=== PATIENT | male | born 1945 | race Caucasian/White ===

== ENCOUNTER 2017-01-07 11:18 | Emergency (ER) | payer MEDICARE, OTHER ==
[~2017-01-07] VITALS: Ht 175.3 cm; Wt 80.3 kg
[2017-01-07 11:32] VITALS: BP 159/94
--- NOTE | 2017-01-07 12:35 | PHYS DOC ---
Past Medical History Past Medical History: Diabetes-Type II, Hypertension Past Surgical History: No Surgical History Smokin Pack Per Day Alcohol Use: None Drug Use: None Adult General Chief Complaint Chief Complaint: EYE PROBLEMS HPI HPI Patient is a 71 year old male who presents with left eye redness and swelling for 2 days. He has swelling of the upper and lower eyelids with red rash extending across the left side of his face. He reports pain in the left eye with movement of the eyes. He has purulent drainage from the eyes well. He denies any fevers. His PCP is Dr. Hart. His assembler plastic boat is Dr. Robledo. Review of Systems Review of Systems Constitutional: Denies fever or chills. [] Eyes: Denies change in visual acuity. Reports left eye redness, drainage, upper and lower eyelid swelling, and pain with eye movement. HENT: Denies ear pain, nasal congestion or sore throat. [] Integument: Reports left facial rash. Neurologic: Denies headache, focal weakness or sensory changes. [] All systems reviewed and negative unless otherwise stated in the HPI. Current Medications Current Medications Current Medications Medications (Trade) Dose Ordered Sig/Remy Start Time Stop Time Status Last Admin Dose Admin Info (Do NOT chart on this entry -- for MONITORING) 1 each PRN DAILY PRN 01/07/17 13:45 01/07/17 14:32 DC Iohexol (Omnipaque 300 Mg/ml) 70 ml 1X ONCE 01/07/17 13:45 01/07/17 13:46 DC Allergies Allergies Allergies Coded Allergies Type Severity Reaction Last Updated Verified No Known Drug Allergies 05/04/14 No Physical Exam Physical Exam Constitutional: Well developed, well nourished, no acute distress, non-toxic appearance. [] HENT: Normocephalic, atraumatic, bilateral external ears normal, oropharynx moist, no oral exudates, nose normal. [] Eyes: PERRLA, EOMI. diffuse left eye conjunctival injection with copious purulent drainage. There is erythema and edema of the upper and lower eyelids of the left eye. Visual acuity: OS 20/100, OD 20/100, OU 20/100 (corrected) Neck: Normal range of motion, no tenderness, supple, no stridor. [] Skin: Warm, dry. There is a mildly raised erythematous rash on the left side of the face without vesicles. Neurologic: Alert and oriented X 3, normal motor function, normal sensory function, no focal deficits noted. [] Psychologic: Affect normal, judgement normal, mood normal. [] Current Patient Data Vital Signs Vital Signs Date Time Temp Pulse Resp B/P Pulse Ox O2 Delivery O2 Flow Rate FiO2 01/07/17 11:32 97.8 115 18 97 Room Air 97.8 Lab Values Laboratory Tests Test 01/07/17 12:19 01/07/17 12:23 White Blood Count 9.7x10^3/uL (4.0-11.0) Red Blood Count 4.71x10^6/uL (4.30-5.70) Hemoglobin 12.6g/dL (13.0-17.5) L Hematocrit 38.3% (39.0-53.0) L Mean Corpuscular Volume 81fL (79-100) Mean Corpuscular Hemoglobin 27pg (25-35) Mean Corpuscular Hemoglobin Concent 33g/dL (31-37) Red Cell Distribution Width 16.2% (11.5-14.5) H Platelet Count 336x10^3/uL (140-400) Neutrophils (%) (Auto) 66% (31-73) Lymphocytes (%) (Auto) 13% (24-48) L Monocytes (%) (Auto) 9% (0-9) Eosinophils (%) (Auto) 11% (0-3) H Basophils (%) (Auto) 1% (0-3) Neutrophils # (Auto) 6.4x10^3uL (1.8-7.7) Lymphocytes # (Auto) 1.3x10^3/uL (1.0-4.8) Monocytes # (Auto) 0.9x10^3/uL (0.0-1.1) Eosinophils # (Auto) 1.1x10^3/uL (0.0-0.7) H Basophils # (Auto) 0.1x10^3/uL (0.0-0.2) POC Hemoglobin 13.6g/dL (14-18) L POC Hematocrit 40% (37-52) POC Sodium 131mmol/L (135-145) L POC Potassium 4.4mmol/L (3.5-5.0) POC Chloride 94mmol/L (98-110) L POC Total CO2 24mmol/L (23-32) Anion Gap 18mmol/L (6-14) H POC Blood Urea Nitrogen 9mg/dL (8-26) POC Creatinine 0.9mg/dL (0.5-1.4) Glucose Level 102mg/dL (70-99) H POC Ionized Calcium (July) 1.14mmol/L (1.13-1.32) Laboratory Tests 01/07/17 12:19 Laboratory Tests 01/07/17 12:23 EKG EKG [] Radiology/Procedures Radiology/Procedures REASON: left eye redness, swelling, pain w/movement, concern for orbital cellulitis PROCEDURE: ORBITS W/CONTRAST EXAM: CT orbits with contrast. HISTORY: Left a redness, swelling and pain. TECHNIQUE: CT of the orbits was performed after the intravenous administration of 70 mL Omnipaque 300. COMPARISON: None. FINDINGS: There is soft tissue swelling along the left greater than right eyelid, extending to a lesser degree to the upper cheeks. No drainable collection is appreciated. The post septal soft tissues are not involved bilaterally. There are changes of bilateral cataract surgery, but otherwise the globes appear normal. There is moderate mucosal thickening in the ethmoid air cells. No erosion of the lamina papyracea is appreciated bilaterally. There is mild mucosal thickening in both maxillary sinuses, the left aspect of the sphenoid sinus, and inferiorly in the frontal sinus. There are no air-fluid levels. The ostiomeatal units are patent bilaterally. IMPRESSION: 1. Preseptal soft tissue swelling along the left greater then right eyelids and cheeks is consistent with cellulitis. No drainable collection is seen. No post septal involvement is identified. 2. Moderate chronic appearing sinus disease. Course & Med Decision Making Course & Med Decision Making Pertinent Labs and Imaging studies reviewed. (See chart for details) Patient presents with 2 days of left eye redness with swelling of the eyelids and surrounding facial rash. Reports pain with movement of the eye. Laboratory evaluation does not reveal leukocytosis. CT of the orbits with contrast shows a preseptal cellulitis without orbital cellulitis. He is discharged with prescription for clindamycin. He declines offer for prescription for pain medication. He is instructed to follow-up with Dr. Robledo, his assembler plastic boat in the next 2-3 days. He is instructed to return to the emergency department if his pain or swelling are worsening or if he has any other new or concerning symptoms. He verbalizes understanding and agrees with plan. Miguel Disclaimer Miguel Disclaimer This electronic medical record was generated, in whole or in part, using a voice recognition dictation system. Departure Departure Impression: Primary Impression: Periorbital cellulitis of left eye Disposition: HOME, SELF-CARE Condition: STABLE Referrals: SHAY HART MD (PCP) Marya ROBLEDO MD Patient Instructions: Periorbital Cellulitis Additional Instructions: Your CT scan shows an infection around the eye but not within the orbit of the eye. Please complete all the prescribed antibiotics, even if your eye is improving. Please follow-up with your assembler plastic boat as soon as possible. Return to the emergency department if you have worsening of your symptoms or other new or concerning symptoms. Scripts Clindamycin Hcl 150 Mg Capsule3 Cap PO TID 10 Days Prov:JAYNE CHAVES 01/07/17 JAYNE CHAVES Jan 07, 2017 12:35
[2017-01-07 12:37] LABS: POTASSIUM ISTAT 4.4 mmol/L (3.5-5.0)
[2017-01-07 12:43] LABS: BASO # 0.1 x10^3/uL (0.0-0.2); BASO % 1 % (0-3); EOS % 11 % (0-3); HEMATOCRIT 38.3 % (39.0-53.0); HEMOGLOBIN 12.6 g/dL (13.0-17.5); LYMPH # 1.3 x10^3/uL (1.0-4.8); LYMPH % 13 % (24-48); MEAN CORPUSCULAR HEMOGLOBIN 27 pg (25-35); MEAN CORPUSCULAR HGB CONC 33 g/dL (31-37); MEAN CORPUSCULAR VOLUME 81 fL (79-100); MONO % 9 % (0-9); NEUT % 66 % (31-73); PLATELET COUNT 336 x10^3/uL (140-400); RED BLOOD COUNT 4.71 x10^6/uL (4.30-5.70); RED CELL DISTRIBUTION WIDTH 16.2 % (11.5-14.5); WHITE BLOOD COUNT 9.7 x10^3/uL (4.0-11.0)
[2017-01-07] MEDS ORDERED: CONTRAST GIVEN MC PRN (13:45)
[2017-01-07] MEDS ORDERED: IOHEXOL 300 MG/ML 75 ML VIAL IV ONE (13:45)
--- NOTE | 2017-01-07 14:00 | RAD ---
EXAM: CT orbits with contrast. HISTORY: Left a redness, swelling and pain. TECHNIQUE: CT of the orbits was performed after the intravenous administration of 70 mL Omnipaque 300. COMPARISON: None. FINDINGS: There is soft tissue swelling along the left greater than right eyelid, extending to a lesser degree to the upper cheeks. No drainable collection is appreciated. The post septal soft tissues are not involved bilaterally. There are changes of bilateral cataract surgery, but otherwise the globes appear normal. There is moderate mucosal thickening in the ethmoid air cells. No erosion of the lamina papyracea is appreciated bilaterally. There is mild mucosal thickening in both maxillary sinuses, the left aspect of the sphenoid sinus, and inferiorly in the frontal sinus. There are no air-fluid levels. The ostiomeatal units are patent bilaterally. IMPRESSION: 1. Preseptal soft tissue swelling along the left greater then right eyelids and cheeks is consistent with cellulitis. No drainable collection is seen. No post septal involvement is identified. 2. Moderate chronic appearing sinus disease. One or more of the following individualized dose reduction techniques were utilized for this examination: 1. Automated exposure control. 2. Adjustment of the mA and/or kV according to patient size. 3. Use of iterative reconstruction technique.
[2017-01-07] MEDS ORDERED: CLIN-44 PO (14:23)
[2017-01-12] MEDS ORDERED: GABA-585 PO (09:49)
[2017-01-12] MEDS ORDERED: HYDR-971 PO (09:49)
[2017-01-12] MEDS ORDERED: ACYC800T PO (09:49)
[2017-01-12] MEDS ORDERED: AMLO5TAB2 PO (09:49)
== END 2017-01-07 14:31 | disposition home or self-care (01) ==
LOC: ER 11:18
DX: L03.213 Periorbital cellulitis (principal); E11.9 Type 2 diabetes mellitus without complications; I10 Essential (primary) hypertension; F17.210 Nicotine dependence, cigarettes, uncomplicated
CPT/HCPCS: 36415; 70481; 80047; 85027; Q9967; 99285-25

== ENCOUNTER 2017-01-09 11:45 | Inpatient (IN) | payer MEDICARE, OTHER ==
[~2017-01-09] VITALS: Ht 175.3 cm; Wt 79.8 kg
[~2017-01-09 11:45] MED LIST: CLIN-44 PO
[2017-01-09] MEDS ORDERED: EYE-STREAM OPHTH SOLUTION 120 ML BOTTLE. ONE (12:05)
[2017-01-09] MEDS ORDERED: FLUORESCEIN OPHTH TEST STRIP. ONE (12:05)
[2017-01-09] MEDS ORDERED: TETRACAINE 0.5% OPHTH SOLUTION 4ML BOTTLE. ONE (12:05)
[2017-01-09] MEDS ORDERED: FLUORESCEIN OPHTH TEST STRIP. OS ONE (12:15)
[2017-01-09] MEDS ORDERED: EYE-STREAM OPHTH SOLUTION 120 ML BOTTLE. OU ONE (12:15)
[2017-01-09] MEDS ORDERED: TETRACAINE 0.5% OPHTH SOLUTION 4ML BOTTLE. OS ONE (12:15)
[2017-01-09] MEDS ORDERED: ONDANSETRON PF 4 MG/2 ML VIAL. IV PRN (12:30)
[2017-01-09] MEDS ORDERED: ACETAMINOPHEN 325 MG TABLET. PO PRN (12:30)
[2017-01-09 12:32] LABS: BASO % 1 % (0-3); EOS % 7 % (0-3); HEMATOCRIT 35.9 % (39.0-53.0); HEMOGLOBIN 11.7 g/dL (13.0-17.5); LYMPH # 1.3 x10^3/uL (1.0-4.8); LYMPH % 18 % (24-48); MEAN CORPUSCULAR HEMOGLOBIN 27 pg (25-35); MEAN CORPUSCULAR HGB CONC 33 g/dL (31-37); MEAN CORPUSCULAR VOLUME 82 fL (79-100); MONO % 13 % (0-9); NEUT % 62 % (31-73); PLATELET COUNT 257 x10^3/uL (140-400); RED BLOOD COUNT 4.38 x10^6/uL (4.30-5.70)
--- NOTE | 2017-01-09 12:34 | PHYS DOC ---
Past Medical History Past Medical History: Diabetes-Type II, GERD, High Cholesterol, Hypertension Past Surgical History: No Surgical History Alcohol Use: None Drug Use: None Adult General Chief Complaint Chief Complaint: EYE PROBLEMS HPI HPI This 71-year-old female who has history of diabetes type 2, hypertension, acid reflux who presents to days after presenting days prior for a left periorbital cellulitis as demonstrated on the CT. Patient was taking clindamycin but now has significant worsening of his swelling and redness to his left face. He denies any pain with extraocular motion. He denies any headache. Patient is fully alert and oriented and able to answer all my questions. He has been able to eat and drink without difficulty and denies any nausea or vomiting. He denies any other systemic signs. Review of Systems Review of Systems Constitutional: Denies fever or chills [] Eyes: Denies change in visual acuity, redness, or eye pain [] HENT: Denies nasal congestion or sore throat [] Respiratory: Denies cough or shortness of breath [] Cardiovascular: No additional information not addressed in HPI [] GI: Denies abdominal pain, nausea, vomiting, bloody stools or diarrhea [] : Denies dysuria or hematuria [] Musculoskeletal: Denies back pain or joint pain [] Integument: Denies rash, has skin lesions [] Neurologic: Denies headache, focal weakness or sensory changes [] Endocrine: Denies polyuria or polydipsia [] Current Medications Current Medications Current Medications Medications (Trade) Dose Ordered Sig/Remy Start Time Stop Time Status Last Admin Dose Admin Acetaminophen (Tylenol) 650 mg PRN Q4HRS PRN 01/09/17 12:30 01/10/17 12:29 Eye Irrigation Solution (Eye-Stream) 120 ml 1X ONCE 01/09/17 12:15 01/09/17 12:16 DC 01/09/17 12:09 120 ML Fluorescein Sodium (Ful-Mei) 1 strip 1X ONCE 01/09/17 12:15 01/09/17 12:16 DC 01/09/17 12:08 1 STRIP Ondansetron HCl (Zofran) 4 mg PRN Q8HRS PRN 01/09/17 12:30 01/10/17 12:29 Tetracaine HCl (Tetracaine) 1 drop 1X ONCE 01/09/17 12:15 01/09/17 12:16 DC 01/09/17 12:09 1 DROP Allergies Allergies Allergies Coded Allergies Type Severity Reaction Last Updated Verified No Known Drug Allergies 05/04/14 No Physical Exam Physical Exam Constitutional: Well developed, well nourished, no acute distress, non-toxic appearance. [] HENT: Normocephalic, atraumatic, bilateral external ears normal, oropharynx moist, no oral exudates, nose normal. [] Eyes: PERRLA, EOMI, large amount of soft tissue swelling to the left periobital area and significant erythema and skin lesions extending upward on the forehead on the left and it does not cross the midline, this is consistent with herpes zoster of the face, no discharge. [] Neck: Normal range of motion, no tenderness, supple, no stridor. [] Cardiovascular:Heart rate regular rhythm, no murmur [] Lungs & Thorax: Bilateral breath sounds clear to auscultation [] Abdomen: Bowel sounds normal, soft, no tenderness, no masses, no pulsatile masses. [] Skin: Warm, dry, no erythema, no rash. [] Back: No tenderness, no CVA tenderness. [] Extremities: No tenderness, no cyanosis, no clubbing, ROM intact, no edema. [] Neurologic: Alert and oriented X 3, normal motor function, normal sensory function, no focal deficits noted. [] Psychologic: Affect normal, judgement normal, mood normal. [] Current Patient Data Vital Signs Vital Signs Date Time Temp Pulse Resp B/P Pulse Ox O2 Delivery O2 Flow Rate FiO2 01/09/17 11:54 97.6 99 18 141/79 98 Room Air 97.6 Lab Values Laboratory Tests Test 01/09/17 12:18 White Blood Count 7.0x10^3/uL (4.0-11.0) Red Blood Count 4.38x10^6/uL (4.30-5.70) Hemoglobin 11.7g/dL (13.0-17.5) L Hematocrit 35.9% (39.0-53.0) L Mean Corpuscular Volume 82fL (79-100) Mean Corpuscular Hemoglobin 27pg (25-35) Mean Corpuscular Hemoglobin Concent 33g/dL (31-37) Red Cell Distribution Width 16.0% (11.5-14.5) H Platelet Count 257x10^3/uL (140-400) Neutrophils (%) (Auto) 62% (31-73) Lymphocytes (%) (Auto) 18% (24-48) L Monocytes (%) (Auto) 13% (0-9) H Eosinophils (%) (Auto) 7% (0-3) H Basophils (%) (Auto) 1% (0-3) Neutrophils # (Auto) 4.3x10^3uL (1.8-7.7) Lymphocytes # (Auto) 1.3x10^3/uL (1.0-4.8) Monocytes # (Auto) 0.9x10^3/uL (0.0-1.1) Eosinophils # (Auto) 0.5x10^3/uL (0.0-0.7) Basophils # (Auto) 0.0x10^3/uL (0.0-0.2) Sodium Level 130mmol/L (136-145) L Potassium Level 4.3mmol/L (3.5-5.1) Chloride Level 93mmol/L (98-107) L Carbon Dioxide Level 25mmol/L (21-32) Anion Gap 12 (6-14) Blood Urea Nitrogen 11mg/dL (8-26) Creatinine 0.9mg/dL (0.7-1.3) Estimated GFR (Cockcroft-Gault) 83.4 Glucose Level 110mg/dL (70-99) H Lactic Acid Level 0.8mmol/L (0.4-2.0) Calcium Level 9.2mg/dL (8.5-10.1) Laboratory Tests 01/09/17 12:18 Laboratory Tests 01/09/17 12:18 EKG EKG [] Radiology/Procedures Radiology/Procedures [] Course & Med Decision Making Course & Med Decision Making Pertinent Labs and Imaging studies reviewed. (See chart for details) 71-year-old male who now has worsening facial infection and exam findings that are fairly classic for herpes zoster and will be started on acyclovir therapy and admitted to the hospital. I will continue IV clindamycin treatment. Cultures and lactate were also obtained. I will also place a consultation to ophthalmology, Dr. Duncan, who will evaluate the patient in the hospital. I discussed these findings and the need for admission with the hospitalist, Dr. Mcdonald, who agreed to accept the patient for further evaluation and treatment. His laboratory workup was otherwise unremarkable. He was admitted without incident. His exam did not reveal any pain with extraocular motion and continues to show just demonstrate soft tissue swelling and so I do not see an indication to repeat CT imaging at this time. She does have some purulent drainage coming from the left eye and wound cultures were required from that area. Dragon Disclaimer Dragon Disclaimer This electronic medical record was generated, in whole or in part, using a voice recognition dictation system. Departure Departure Impression: Primary Impression: Periorbital cellulitis of left eye Additional Impression: Herpes zoster Disposition: ADMITTED INPATIENT Admitting Physician: Kulwant Mcdonald Condition: STABLE Referrals: SHAY HART MD (PCP) Problem Qualifiers GEMINI CORNEJO DO Jan 09, 2017 12:34
[2017-01-09] MEDS ORDERED: CLINDAMYCIN 600MG PREMIX 50 ML IV ONE (12:45)
[2017-01-09] MEDS ORDERED: ACYCLOVIR SODIUM 1,000 MG in IV DEXTROSE 5% 250 ML IV ONE (12:45)
[2017-01-09 12:52] LABS: CALCIUM 9.2 mg/dL (8.5-10.1); CREATININE 0.9 mg/dL (0.7-1.3); GFR 83.4; POTASSIUM 4.3 mmol/L (3.5-5.1)
[2017-01-09] MEDS ORDERED: IV NORMAL SALINE 1000ML BAG 1,000 ML IV ONE (13:00)
[2017-01-09 14:00] VITALS: BP 138/76
[2017-01-09] MEDS ORDERED: ACYCLOVIR SODIUM IV SCH (14:00)
[2017-01-09] MEDS ORDERED: DEXTROSE 5% IV SCH (14:00)
[2017-01-09] MEDS ORDERED: LISI-334 PO (14:36)
[2017-01-09] MEDS ORDERED: CETI10TA16 PO (14:36)
[2017-01-09] MEDS ORDERED: AMLO5TAB2 PO (14:36)
[2017-01-09] MEDS ORDERED: ASPI81TA2 PO (14:36)
[2017-01-09] MEDS ORDERED: TAMS0.4C2 PO (14:36)
[2017-01-09] MEDS ORDERED: METF10002 PO (14:36)
[2017-01-09] MEDS ORDERED: DUTA0.5C PO (14:36)
[2017-01-09] MEDS ORDERED: CRESTOR5 MG PO (14:36)
[2017-01-09] MEDS ORDERED: OMEP40CA5 PO (14:36)
[2017-01-09] MEDS ORDERED: METO10TA PO (14:36)
[2017-01-09] MEDS ORDERED: GLIP5TAB10 PO (14:36)
[2017-01-09] MEDS ORDERED: MULT1TAB52 PO (14:38)
[2017-01-09] MEDS: IV NORMAL SALINE 1000ML BAG 1,000 ML IV SCH (15:11)
--- NOTE | 2017-01-09 16:13 | ACF ---
Admission Forms Criteria HEAD AND NECK DISEASE [facility] Clinical Indications for Admission to Inpatient Care ( Place 'X' for any and all applicable criteria): Hospital admission is needed for appropriate care of the patient because of ANY ONE of the following (1)(2): [ ]I. Severe sinusitis as indicated by ANY ONE of the following (6)(13)(21) [ ]a) Suspected [employer] infection [ ]b) Bacteremia [ ]c) Hemodynamic instability [ ]d) Outpatient and observation care antibiotic treatment have failed or are not considered appropriate [ ]e) Surgical drainage needed that cannot be performed on an outpatient basis or observation. setting [ ]f) Suspected orbital involvement [ ]II. Acute glaucoma unresponsive to emergency treatment that requires medication or other treatment beyond the scope of observation care (1) [ ]III. Severe eye infection or inflammation (eg, uveitis) which is unresponsive to emergency treatment and requires medication or other treatment beyond the scope of observation care (1)(2)(3)(4) [ ]IV. Severe epistaxis requiring posterior packing (5)(6) [ ]V. Acute bacterial labyrinthitis(6)(7) [ ]. Viral labyrinthitis with symptoms uncontrollable on an outpatient or observation care basis (6)(7) [ ]VII. Severe necrotizing external otitis unresponsive to outpatient and observation care treatment(6) [ ]VIII. Otitis media requiring treatment beyond the scope of outpatient and observation care, as indicated by presence or persistence of ANY ONE of the following(6)(8)(9): [ ]a) Hemodynamic instability [ ]b) Mastoiditis [ ]c) Suspected [employer] infection [ ]d) Bacteremia [ ]e) Surgical drainage needed that cannot be performed as an outpatient. or in an observation setting. [ ]IX. Epiglottitis or supraglottitis(6)(11)(12)(13)(14) [ ]X. Stridor or laryngospasm (unresponsive to emergency management) (6)(11)( 12)(13)(14) [ ]XI. Acute pharyngitis or tonsillitis and ANY ONE of the following (14)(15)( 16): [ ]a) Hemodynamic instability remaining after emergency or observation level care (as appropriate) [ ]b) Surgical drainage needed that cannot be performed in outpatient or observation setting [ ]c) Mediastinitis [ ]d) Thrombophlebitis of internal jugular vein (Lemierre syndrome) [ ]XII. Sialoadenitis and ANY ONE of the following (17) (18) [ ]a) Hemodynamic instability remaining after emergency or observation level care(as appropriate) [ ]b) Surgical drainage needed that cannot be performed in outpatient or observation setting [ ]XIII. Airway blockage or inability to swallow (6)(12)(19)(20) [X]XIV.Complicated infection indicated by ANY ONE of the following(6)(13)(21)(22 ): [ ]a) Abscess or swelling causing airway difficulty(12) [ ]b) Bacteremia [ ]c) Hemodynamic instability [ ]d) Suspected [employer] infection [X]e) Outpatient and observation care antibiotic treatment have failed or are not considered appropriate [ ]f) Surgical drainage needed that cannot be performed on an outpatient basis or observation setting [ ]g) Other management need that cannot be performed in outpatient or observation setting: [ ]XV. Severe trauma requiring inpatient medical treatment of eye, head, pharynx, or airway (1)([phone]) [ ]XVI. Ischemic optic neuropathy(11) [ ]XVII.Head or Neck Disease condition and ANY ONE of the following: [ ]a) Symptom or finding for which emergency and observation care have failed or are not considered appropriate (Also use General Criteria: Observation Care as appropriate) [ ]b) Presence of ANY ONE of the following: [ ]i) A General Admission Criteria [ ]ii) A Pediatric General Admission Criteria [facility] content [facility] by [facility] has been revised. The portions of the content which have been revised are identified through the use of italic text or in bold, and [facility] has neither reviewed nor approved the modified material. All other unmodified content is copyright [facility]. Please see references footnoted in the original [facility] edition 2016 Admission Criteria Met?: Yes DUSTIN CALIX Jan 09, 2017 16:13
[2017-01-09] MEDS ORDERED: PNEUMOCOCCAL VAX SCREEN BY RX. MC PRN (17:00)
[2017-01-09] MEDS ORDERED: INFLUENZA VAX SCREEN BY RX. MC PRN (17:00)
[2017-01-09] MEDS: NICOTINE 21MG PATCH. TD SCH (17:44)
[2017-01-09] MEDS ORDERED: ZOLPIDEM 5 MG TABLET. PO PRN (18:15)
[2017-01-09] MEDS: METOCLOPRAMIDE 10 MG TABLET PO SCH ×2 (18:30→18:31)
[2017-01-09] MEDS: LISINOPRIL 20 MG TABLET PO SCH (18:31)
[2017-01-09] MEDS: METFORMIN 1,000 MG TABLET PO SCH (18:31)
[2017-01-09] MEDS: GLIPIZIDE 5 MG TABLET PO SCH (18:32)
[2017-01-09 19:36] VITALS: BP 139/79
[2017-01-09] MEDS: HYDROCODONE/APAP 5/325MG TABLET. PO PRN (21:15)
[2017-01-09] MEDS: ATORVASTATIN CALCIUM 20 MG TABLET PO SCH (21:16)
[2017-01-09] MEDS: DUTASTERIDE 0.5 MG CAPSULE PO SCH (21:16)
[2017-01-09] MEDS: TAMSULOSIN 0.4 MG CAP.ER.24H. PO SCH (21:16)
[2017-01-09] MEDS: ACYCLOVIR SODIUM 1,000 MG in IV DEXTROSE 5% 250 ML IV SCH (21:17)
[2017-01-09 23:51] VITALS: BP 145/82
[2017-01-10 03:00] VITALS: BP 155/92
[2017-01-10] MEDS: IV NORMAL SALINE 1000ML BAG 1,000 ML IV SCH ×2 (03:36→09:00)
[2017-01-10] MEDS: ACYCLOVIR SODIUM 1,000 MG in IV DEXTROSE 5% 250 ML IV SCH ×3 (06:02→21:06)
[2017-01-10 06:04] LABS: BASO # 0.1 x10^3/uL (0.0-0.2); BASO % 1 % (0-3); EOS % 11 % (0-3); HEMATOCRIT 35.5 % (39.0-53.0); HEMOGLOBIN 11.6 g/dL (13.0-17.5); LYMPH # 1.5 x10^3/uL (1.0-4.8); LYMPH % 20 % (24-48); MEAN CORPUSCULAR HEMOGLOBIN 27 pg (25-35); MEAN CORPUSCULAR HGB CONC 33 g/dL (31-37); MEAN CORPUSCULAR VOLUME 82 fL (79-100); MONO % 15 % (0-9); NEUT % 54 % (31-73); PLATELET COUNT 253 x10^3/uL (140-400); RED BLOOD COUNT 4.34 x10^6/uL (4.30-5.70); RED CELL DISTRIBUTION WIDTH 16.3 % (11.5-14.5); WHITE BLOOD COUNT 7.2 x10^3/uL (4.0-11.0)
[2017-01-10 06:21] LABS: CALCIUM 9.3 mg/dL (8.5-10.1); CREATININE 0.9 mg/dL (0.7-1.3); GFR 83.4; POTASSIUM 4.1 mmol/L (3.5-5.1)
[2017-01-10 07:00] VITALS: BP 150/90
[2017-01-10] MEDS: METOCLOPRAMIDE 10 MG TABLET PO SCH ×2 (07:22→16:44)
[2017-01-10] MEDS: PANTOPRAZOLE 40 MG TABLET. PO SCH (07:22)
[2017-01-10] MEDS: HYDROCODONE/APAP 5/325MG TABLET. PO PRN ×3 (07:26→23:54)
[2017-01-10] MEDS: METFORMIN 1,000 MG TABLET PO SCH ×2 (08:00→18:12)
[2017-01-10] MEDS ORDERED: PNEUMOC VACCINE 13-VALENT 0.5 ML DISP.SYRIN. VAX IM ONE (09:00)
[2017-01-10] MEDS ORDERED: FLU VACC QUAD 2016-17 (36MOS+)/PF 0.5 ML SYRINGE. VAX IM ONE (09:00)
[2017-01-10] MEDS: CETIRIZINE HCL 10 MG TABLET PO SCH (09:26)
[2017-01-10] MEDS: AMLODIPINE BESYLATE 5 MG TABLET PO SCH (09:26)
[2017-01-10] MEDS: ASPIRIN 81 MG TAB.CHEW PO SCH (09:27)
[2017-01-10] MEDS: LISINOPRIL 20 MG TABLET PO SCH ×2 (09:27→18:12)
[2017-01-10] MEDS: NICOTINE 21MG PATCH. TD SCH (09:28)
[2017-01-10] MEDS: MULTIVITAMIN with MINERAL TABLET. PO SCH (09:28)
[2017-01-10 10:49] VITALS: BP 155/86
--- NOTE | 2017-01-10 11:16 | PDOC ---
GENERAL General: see dictated H&P. Problems: VITAL SIGNS Vital Signs: Vital Signs Date Time Temp Pulse Resp B/P Pulse Ox O2 Delivery O2 Flow Rate FiO2 01/10/17 10:49 97.6 81 20 155/86 97 Room Air 97.6 I & O I & O Intake and Output 01/10/17 07:00 Intake Total 1850 ml Balance 1850 ml Intake Oral 800 ml IV Total 1050 ml # Voids 5 ALLERGIES Allergies: Allergies Coded Allergies Type Severity Reaction Last Updated Verified No Known Drug Allergies 05/04/14 No MEDS Medications: Current Medications Medications (Trade) Dose Ordered Sig/Remy Start Time Stop Time Status Last Admin Dose Admin Acetaminophen 650 mg 650 mg PRN Q4HRS PRN 01/09/17 12:30 01/10/17 12:29 01/10/17 03:35 650 MG Acetaminophen/ Hydrocodone Bitart (Lortab 5/325) 1 tab PRN Q4HRS PRN 01/09/17 18:15 01/10/17 07:26 1 TAB Acyclovir Sodium 580 mg/Dextrose 111.6 ml @ 111.6 mls/ hr Q8HRS 01/09/17 14:00 UNV Acyclovir Sodium/ Dextrose (Zovirax) 270 ml @ 270 mls/hr Q8HRS 01/09/17 22:00 01/10/17 06:02 270 MLS/HR Amlodipine Besylate (Norvasc) 5 mg DAILY 01/10/17 09:00 01/10/17 09:26 5 MG Aspirin (Children'S Aspirin) 81 mg DAILY 01/10/17 09:00 01/10/17 09:27 81 MG Atorvastatin Calcium (Lipitor) 20 mg QHS 01/09/17 21:00 01/09/17 21:16 20 MG Cetirizine HCl (Zyrtec) 10 mg DAILY 01/10/17 09:00 01/10/17 09:26 10 MG Clindamycin Phosphate (Cleocin 600 Mg Premix) 50 ml @ 100 mls/hr 1X ONCE 01/09/17 12:45 01/09/17 13:14 DC 01/09/17 12:47 100 MLS/HR Dutasteride (Avodart) 0.5 mg HS 01/09/17 21:00 01/09/17 21:16 0.5 MG Eye Irrigation Solution (Eye-Stream) 120 ml STK-MED ONCE 01/09/17 12:05 01/09/17 12:06 DC Eye Irrigation Solution 120 ml 120 ml 1X ONCE 01/09/17 12:15 01/09/17 12:16 DC 01/09/17 12:09 120 ML Fluorescein Sodium (Ful-Mei) 1 strip 1X ONCE 01/09/17 12:15 01/09/17 12:16 DC 01/09/17 12:08 1 STRIP Glipizide (Glucotrol) 5 mg DAILYWSUP 01/09/17 18:30 01/09/17 18:32 5 MG Influenza Virus Vaccine Quadrival (Fluarix Quad [id number] Syringe) 0.5 ml ONCE ONCE 01/10/17 09:00 01/10/17 09:01 DC 01/10/17 09:33 0.5 ML Info (Do NOT chart on this placeholder) 1 each PRN 1X PRN 01/09/17 17:00 UNV Lisinopril (Prinivil) 20 mg BIDWMEALS 01/09/17 18:30 01/10/17 09:27 20 MG Metformin HCl (Glucophage) 1,000 mg BIDWMEALS 01/09/17 18:30 01/10/17 08:00 1,000 MG Metoclopramide HCl (Reglan) 10 mg BIDAC 01/09/17 18:30 01/10/17 07:22 10 MG Multivitamins (Thera M Plus) 1 tab DAILY 01/10/17 09:00 01/10/17 09:28 1 TAB Nicotine (Nicoderm Cq 21mg) 1 patch DAILY 01/09/17 17:00 01/10/17 09:28 1 PATCH Ondansetron HCl 4 mg 4 mg PRN Q8HRS PRN 01/09/17 12:30 01/10/17 12:29 Pantoprazole Sodium (Protonix) 40 mg DAILYAC 01/10/17 07:30 01/10/17 07:22 40 MG Pneumoccal 13-Valent Conj Vacc (Prevnar 13) 0.5 ml ONCE ONCE 01/10/17 09:00 01/10/17 09:01 DC 01/10/17 09:32 0.5 ML Pneumococcal Polyvalent Vaccine (Do NOT chart on this placeholder) 1 each PRN 1X PRN 01/09/17 17:00 UNV Sodium Chloride (Iv Sodium Chloride 0.9% 1000ml Bag) 1,000 ml @ 100 mls/hr Q10H 01/09/17 13:00 01/10/17 12:59 01/10/17 03:36 100 MLS/HR Tamsulosin HCl (Flomax) 0.4 mg HS 01/09/17 21:00 01/09/17 21:16 0.4 MG Tetracaine HCl (Tetracaine) 1 drop 1X ONCE 01/09/17 12:15 01/09/17 12:16 DC 01/09/17 12:09 1 DROP Zolpidem Tartrate (Ambien) 5 mg PRN QHS PRN 01/09/17 18:15 LAB Lab: Laboratory Tests Test 01/09/17 12:18 01/09/17 17:03 01/09/17 21:48 01/10/17 05:35 White Blood Count 7.0x10^3/uL (4.0-11.0) 7.2x10^3/uL (4.0-11.0) Red Blood Count 4.38x10^6/uL (4.30-5.70) 4.34x10^6/uL (4.30-5.70) Hemoglobin 11.7g/dL (13.0-17.5) 11.6g/dL (13.0-17.5) Hematocrit 35.9% (39.0-53.0) 35.5% (39.0-53.0) Mean Corpuscular Volume 82fL (79-100) 82fL (79-100) Mean Corpuscular Hemoglobin 27pg (25-35) 27pg (25-35) Mean Corpuscular Hemoglobin Concent 33g/dL (31-37) 33g/dL (31-37) Red Cell Distribution Width 16.0% (11.5-14.5) 16.3% (11.5-14.5) Platelet Count 257x10^3/uL (140-400) 253x10^3/uL (140-400) Neutrophils (%) (Auto) 62% (31-73) 54% (31-73) Lymphocytes (%) (Auto) 18% (24-48) 20% (24-48) Monocytes (%) (Auto) 13% (0-9) 15% (0-9) Eosinophils (%) (Auto) 7% (0-3) 11% (0-3) Basophils (%) (Auto) 1% (0-3) 1% (0-3) Neutrophils # (Auto) 4.3x10^3uL (1.8-7.7) 3.9x10^3uL (1.8-7.7) Lymphocytes # (Auto) 1.3x10^3/uL (1.0-4.8) 1.5x10^3/uL (1.0-4.8) Monocytes # (Auto) 0.9x10^3/uL (0.0-1.1) 1.1x10^3/uL (0.0-1.1) Eosinophils # (Auto) 0.5x10^3/uL (0.0-0.7) 0.8x10^3/uL (0.0-0.7) Basophils # (Auto) 0.0x10^3/uL (0.0-0.2) 0.1x10^3/uL (0.0-0.2) Sodium Level 130mmol/L (136-145) 134mmol/L (136-145) Potassium Level 4.3mmol/L (3.5-5.1) 4.1mmol/L (3.5-5.1) Chloride Level 93mmol/L (98-107) 98mmol/L (98-107) Carbon Dioxide Level 25mmol/L (21-32) 25mmol/L (21-32) Anion Gap 12 (6-14) 11 (6-14) Blood Urea Nitrogen 11mg/dL (8-26) 12mg/dL (8-26) Creatinine 0.9mg/dL (0.7-1.3) 0.9mg/dL (0.7-1.3) Estimated GFR (Cockcroft-Gault) 83.4 83.4 Glucose Level 110mg/dL (70-99) 75mg/dL (70-99) Lactic Acid Level 0.8mmol/L (0.4-2.0) Calcium Level 9.2mg/dL (8.5-10.1) 9.3mg/dL (8.5-10.1) Glucose (Fingerstick) 113mg/dL (70-99) 118mg/dL (70-99) Test 01/10/17 08:21 Glucose (Fingerstick) 127mg/dL (70-99) ASUNCION ORTEGA MD Jan 10, 2017 11:16
--- NOTE | 2017-01-10 12:13 | HP ---
ADMIT DATE: CHIEF COMPLAINT AND HISTORY OF PRESENT ILLNESS: This is a 71-year-old white male, patient of Dr. Guido, who was admitted with herpes zoster involving the left forehead and eye. The patient has had pain and some swelling prior and had a CT on January 07, 2017, suggesting periorbital cellulitis, but at this point, would guess it all was zoster related. He, however, has some swelling and a little bit of redness below the right eye. In addition, I am going to ask Infectious Disease to see him for an opinion. He is currently on acyclovir and has an appointment with Ophthalmology tomorrow, specifically Dr. Duncan, and I am going to ask him to come by and take a look at him. 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 PAST MEDICAL HISTORY: The patient's past medical history is remarkable for diabetes, GERD, hyperlipidemia, and hypertension. MEDICATIONS: Brought with the patient, listed on the computer, and have been addressed. ALLERGIES: He has no known drug allergies. SOCIAL HISTORY: Noncontributory. FAMILY HISTORY: Noncontributory. REVIEW OF SYSTEMS: As mentioned above. PHYSICAL EXAMINATION: GENERAL: He is a well-developed, well-nourished, pleasant white male who does have some left-sided forehead pain. VITAL SIGNS: Stable. He is afebrile. HEAD, EYES, EARS, NOST, AND THROAT: Remarkable for zoster involvement of left forehead and left nose and the entire eye is quite red. NECK: Supple without adenopathy or thyromegaly. CHEST: Clear to auscultation and percussion. HEART: Regular rate and rhythm without S3, S4, murmur. ABDOMEN: Soft, nontender, without hepatosplenomegaly, or mass. EXTREMITIES: Without cyanosis, clubbing, or edema. NEUROLOGIC: He is intact. IMPRESSION: Herpes zoster of the left eye with possibility of secondary cellulitis. Other problems are listed above. PLAN: The patient has been admitted. His acyclovir will be continued. Infectious Disease and Ophthalmology will be asked to see the patient, and the patient will be monitored, managed, and treated appropriately. ASUNCION ORTEGA MD DR: JOSEPH/rajeev JOB#: [id number] / [id number] abdirahman Guido Dr.
[2017-01-10] MEDS ORDERED: ACETAMINOPHEN 325 MG TABLET. PO PRN (13:15)
--- NOTE | 2017-01-10 13:38 | PDOC ---
Infectious Disease Note ROS ROS GEN: Denies fevers, chills, sweats HEENT: Denies blurred vision, sore throat CV: Denies chest pain RESP: Denies shortness of air, cough GI: Denies n/v/d NEURO: Denies confusion, dizziness MSK: Denies weakness, joint pain/swelling Vital Sign Vital Signs Vital Signs Date Time Temp Pulse Resp B/P Pulse Ox O2 Delivery O2 Flow Rate FiO2 01/10/17 10:49 97.6 81 20 155/86 97 Room Air 97.6 Physical Exam PHYSICAL EXAM GENERAL: NAD, Alert HEENT: PERRL, OC/OP NECK: Supple, no JVD, no LN LUNGS: Clear HEART: S1S2, no gallop, no murmur ABD: Soft, NT, no organomegaly, no rebound EXT: No edema, no cyanosis 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: Alert, oriented x 3, no focal neurologic deficit SKIN: No rash IV: ok Labs Lab Laboratory Tests Test 01/09/17 17:03 01/09/17 21:48 01/10/17 05:35 01/10/17 08:21 Glucose (Fingerstick) 113mg/dL (70-99) 118mg/dL (70-99) 127mg/dL (70-99) White Blood Count 7.2x10^3/uL (4.0-11.0) Red Blood Count 4.34x10^6/uL (4.30-5.70) Hemoglobin 11.6g/dL (13.0-17.5) Hematocrit 35.5% (39.0-53.0) Mean Corpuscular Volume 82fL (79-100) Mean Corpuscular Hemoglobin 27pg (25-35) Mean Corpuscular Hemoglobin Concent 33g/dL (31-37) Red Cell Distribution Width 16.3% (11.5-14.5) Platelet Count 253x10^3/uL (140-400) Neutrophils (%) (Auto) 54% (31-73) Lymphocytes (%) (Auto) 20% (24-48) Monocytes (%) (Auto) 15% (0-9) Eosinophils (%) (Auto) 11% (0-3) Basophils (%) (Auto) 1% (0-3) Neutrophils # (Auto) 3.9x10^3uL (1.8-7.7) Lymphocytes # (Auto) 1.5x10^3/uL (1.0-4.8) Monocytes # (Auto) 1.1x10^3/uL (0.0-1.1) Eosinophils # (Auto) 0.8x10^3/uL (0.0-0.7) Basophils # (Auto) 0.1x10^3/uL (0.0-0.2) Sodium Level 134mmol/L (136-145) Potassium Level 4.1mmol/L (3.5-5.1) Chloride Level 98mmol/L (98-107) Carbon Dioxide Level 25mmol/L (21-32) Anion Gap 11 (6-14) Blood Urea Nitrogen 12mg/dL (8-26) Creatinine 0.9mg/dL (0.7-1.3) Estimated GFR (Cockcroft-Gault) 83.4 Glucose Level 75mg/dL (70-99) Calcium Level 9.3mg/dL (8.5-10.1) Test 01/10/17 12:01 Glucose (Fingerstick) 98mg/dL (70-99) Objective Assessment Zoster of left eye worse after d/c home with clindamycin Abnormal vision Chronic sinus disease Anemia Plan Plan of Care Restart IV acyclovir Await optho eval Monitor swelling - may need abx if sec infection develops Thank you # [id number] JAKUB SOTELO MD Jan 10, 2017 13:38
[2017-01-10] MEDS ORDERED: ACYCLOVIR SODIUM 1,000 MG in IV DEXTROSE 5% 250 ML IV SCH (14:00)
[2017-01-10] MEDS ORDERED: ACYCLOVIR 200 MG CAPSULE PO SCH (14:00)
[2017-01-10 14:21] VITALS: BP 138/75
[2017-01-10] MEDS: GLIPIZIDE 5 MG TABLET PO SCH (18:13)
[2017-01-10 19:20] VITALS: BP 152/85
[2017-01-10] MEDS: DUTASTERIDE 0.5 MG CAPSULE PO SCH (21:05)
[2017-01-10] MEDS: ATORVASTATIN CALCIUM 20 MG TABLET PO SCH (21:06)
[2017-01-10] MEDS: TAMSULOSIN 0.4 MG CAP.ER.24H. PO SCH (21:06)
[2017-01-10 23:05] VITALS: BP 153/85
--- NOTE | 2017-01-11 00:45 | CONS ---
DATE OF CONSULTATION: 01/10/2017 LOCATION: The patient's room is 660. REQUESTING PHYSICIAN: Dr. Camacho. REASON FOR CONSULTATION: Zoster, questionable periorbital cellulitis. HISTORY OF PRESENT ILLNESS: The patient is a pleasant 71-year-old gentleman with a history of Fuchs disease requiring a corneal transplant. He states last Wednesday he developed an itch around his left eye, by Wednesday the eye began to become more inflamed and on , actually he awakened and it was swollen shut. He did not have any fevers or sweats. He did have some chills. He presented to the Emergency Room and underwent a CT scan of the head, showed preseptal soft tissue swelling on the right eye consistent with cellulitis and moderate chronic appearing sinus disease, admitted to the hospital and placed on IV acyclovir. He has since been switched to oral acyclovir to start this afternoon. Currently, he is sitting upright in bed. He is fairly comfortable. He denies any gross fevers or chills. He does have change in vision that has occurred just prior to his admission, although he feels that might be a little bit better. The swelling of his left eye has improved, but he feels like his right eye might have a little bit more fluid associated with it. He has no sinus drainage or pressure. No sore throat or cough. No chest pain. No shortness of air. Denies any nausea, vomiting, diarrhea, dysuria, frequency or urgency. PAST MEDICAL HISTORY: Positive for the above-mentioned Fuchs disease, history of diabetes, gastroesophageal reflux disease, hyperlipidemia and hypertension. REVIEW OF SYSTEMS: Otherwise negative except for what is mentioned above. ALLERGIES: No known drug allergies. SOCIAL HISTORY: He does have a history of tobacco use. FAMILY HISTORY: Noncontributory. CURRENT MEDICATIONS: He received IV acyclovir, should have been changed to oral. He is also on hydrocodone, glipizide, Avodart, Zyrtec, Lipitor, aspirin, Norvasc, Flomax. PHYSICAL EXAMINATION: VITAL SIGNS: He is afebrile, temperature 97.6, pulse 81, respirations 20, blood pressure 155/86, satting 97% on room air. CONSTITUTIONAL: He is a pleasant gentleman. He is cooperative. He is in no acute distress. HEENT: His left eye has injection associated with swelling with clear appearing fluid below both eyes. He does have a zoster like rash associated with the left midline of forehead and about his eye. NECK: Supple, with no JVD. LUNGS: Clear to auscultation. HEART: S1, S2. ABDOMEN: Soft, nontender, nondistended with positive bowel sounds. EXTREMITIES: Without clubbing or cyanosis. No gross edema. SKIN: Warm to touch without signs of rash. NEUROLOGICAL: He is without signs of any complications. LABORATORY VALUES: White count 72, hemoglobin 11.6, platelets 253 with 54 neutrophils, 20 lymphs, 15 monocytes. Creatinine was 0.9, glucose was 75. Blood cultures are negative for 1 day. Again, CT scan obtained on the , as mentioned above. IMPRESSION: 1. Zoster of left eye has developed and become worse over several days. He was seen on the , but at that time there was an assumption that it was cellulitis, was home on clindamycin. 2. He had normal vision. 3. Chronic sinus disease. 4. Anemia. RECOMMENDATIONS: Again, there is change in vision. We will restart his IV acyclovir, for Ophthalmology to evaluate him and we will monitor his swelling. There is no gross warmth and erythema associated with it to conclude that it is a secondary infection aside from the zoster at this point. We will hold additional antibiotics. Thank you for allowing me to participate in the patient's care. If you have any questions, please do not hesitate to contact me. JAKUB SOTELO MD DR: SHNAE/rajeev JOB#: [id number] / [id number]
[2017-01-11 04:01] LABS: BASO # 0.1 x10^3/uL (0.0-0.2); BASO % 1 % (0-3); EOS % 12 % (0-3); HEMATOCRIT 35.9 % (39.0-53.0); HEMOGLOBIN 11.8 g/dL (13.0-17.5); LYMPH # 1.6 x10^3/uL (1.0-4.8); LYMPH % 20 % (24-48); MEAN CORPUSCULAR HEMOGLOBIN 27 pg (25-35); MEAN CORPUSCULAR HGB CONC 33 g/dL (31-37); MEAN CORPUSCULAR VOLUME 81 fL (79-100); MONO % 13 % (0-9); NEUT % 55 % (31-73); PLATELET COUNT 268 x10^3/uL (140-400); RED BLOOD COUNT 4.43 x10^6/uL (4.30-5.70); WHITE BLOOD COUNT 8.1 x10^3/uL (4.0-11.0)
[2017-01-11 04:15] LABS: CALCIUM 9.3 mg/dL (8.5-10.1); CREATININE 0.9 mg/dL (0.7-1.3); GFR 83.4; POTASSIUM 4.2 mmol/L (3.5-5.1)
[2017-01-11] MEDS: ACYCLOVIR SODIUM 1,000 MG in IV DEXTROSE 5% 250 ML IV SCH ×3 (06:12→20:31)
[2017-01-11 07:25] VITALS: BP 162/90
[2017-01-11] MEDS: PANTOPRAZOLE 40 MG TABLET. PO SCH (08:31)
[2017-01-11] MEDS: METFORMIN 1,000 MG TABLET PO SCH ×2 (08:32→17:24)
[2017-01-11] MEDS: ASPIRIN 81 MG TAB.CHEW PO SCH (08:32)
[2017-01-11] MEDS: CETIRIZINE HCL 10 MG TABLET PO SCH (08:32)
[2017-01-11] MEDS: AMLODIPINE BESYLATE 5 MG TABLET PO SCH (08:32)
[2017-01-11] MEDS: LISINOPRIL 20 MG TABLET PO SCH ×2 (08:32→17:24)
[2017-01-11] MEDS: MULTIVITAMIN with MINERAL TABLET. PO SCH (08:32)
[2017-01-11] MEDS: METOCLOPRAMIDE 10 MG TABLET PO SCH ×2 (08:33→17:24)
[2017-01-11] MEDS: NICOTINE 21MG PATCH. TD SCH (08:36)
--- NOTE | 2017-01-11 10:25 | PDOC ---
Infectious Disease Note Subjective Subjective Better ROS ROS GEN: Denies fevers, chills, sweats HEENT: Denies blurred vision, sore throat CV: Denies chest pain RESP: Denies shortness of air, cough GI: Denies n/v/d NEURO: Denies confusion, dizziness MSK: Denies weakness, joint pain/swelling Vital Sign Vital Signs Vital Signs Date Time Temp Pulse Resp B/P Pulse Ox O2 Delivery O2 Flow Rate FiO2 01/11/17 08:32 107 162/90 01/11/17 07:30 Room Air 01/11/17 07:25 98.1 16 93 98.1 Physical Exam PHYSICAL EXAM GENERAL: NAD, Alert HEENT: PERRL, OC/OP -clear. . Less periorbital swelling and left eye injuction. EOMI NECK: Supple, no JVD, no LN LUNGS: Clear HEART: S1S2, no gallop, no murmur ABD: Soft, NT, no organomegaly, no rebound EXT: No edema, no cyanosis SONG PLUGGER: Alert, oriented x 3, no focal neurologic deficit SKIN: Crusting IV: ok Labs Lab Laboratory Tests Test 01/10/17 12:01 01/10/17 16:33 01/10/17 21:07 01/11/17 03:50 Glucose (Fingerstick) 98mg/dL (70-99) 91mg/dL (70-99) 89mg/dL (70-99) White Blood Count 8.1x10^3/uL (4.0-11.0) Red Blood Count 4.43x10^6/uL (4.30-5.70) Hemoglobin 11.8g/dL (13.0-17.5) Hematocrit 35.9% (39.0-53.0) Mean Corpuscular Volume 81fL (79-100) Mean Corpuscular Hemoglobin 27pg (25-35) Mean Corpuscular Hemoglobin Concent 33g/dL (31-37) Red Cell Distribution Width 16.0% (11.5-14.5) Platelet Count 268x10^3/uL (140-400) Neutrophils (%) (Auto) 55% (31-73) Lymphocytes (%) (Auto) 20% (24-48) Monocytes (%) (Auto) 13% (0-9) Eosinophils (%) (Auto) 12% (0-3) Basophils (%) (Auto) 1% (0-3) Neutrophils # (Auto) 4.4x10^3uL (1.8-7.7) Lymphocytes # (Auto) 1.6x10^3/uL (1.0-4.8) Monocytes # (Auto) 1.1x10^3/uL (0.0-1.1) Eosinophils # (Auto) 1.0x10^3/uL (0.0-0.7) Basophils # (Auto) 0.1x10^3/uL (0.0-0.2) Sodium Level 137mmol/L (136-145) Potassium Level 4.2mmol/L (3.5-5.1) Chloride Level 100mmol/L (98-107) Carbon Dioxide Level 28mmol/L (21-32) Anion Gap 9 (6-14) Blood Urea Nitrogen 10mg/dL (8-26) Creatinine 0.9mg/dL (0.7-1.3) Estimated GFR (Cockcroft-Gault) 83.4 Glucose Level 78mg/dL (70-99) Calcium Level 9.3mg/dL (8.5-10.1) Test 01/11/17 08:00 Glucose (Fingerstick) 121mg/dL (70-99) Objective Assessment Zoster of left eye better Abnormal vision Chronic sinus disease Anemia Plan Plan of Care Continue IV acyclovir. IF ok with optho may change to po Await optho eval today JAKUB SOTELO MD Jan 11, 2017 10:25
[2017-01-11 11:05] VITALS: BP 135/80
--- NOTE | 2017-01-11 12:09 | PDOC ---
SUBJECTIVE Subjective pain little better this AM, still significant swelling of eye with erythematous conjunctiva, matting when he wakes up, vision L eye still not good OBJECTIVE Objective Bp and HR high at times when in pain encouraged to ask for pain med Vital Signs Vital Signs Date Time Temp Pulse Resp B/P Pulse Ox O2 Delivery O2 Flow Rate FiO2 01/11/17 11:05 97.6 97 18 135/80 96 Room Air 97.6 01/11/17 08:32 107 162/90 01/11/17 08:32 107 162/90 01/11/17 07:30 Room Air 01/11/17 07:25 98.1 107 16 162/90 93 Room Air 98.1 01/10/17 23:05 98.1 89 20 153/85 95 Room Air 98.1 01/10/17 20:05 Room Air 01/10/17 19:20 97.7 89 20 152/85 97 Room Air 97.7 01/10/17 18:12 86 138/75 01/10/17 14:21 97.7 86 20 138/75 97 Room Air 97.7 I & O Intake and Output 01/11/17 07:00 Intake Total 900 ml Balance 900 ml Intake Oral 900 ml # Voids 5 PHYSICAL EXAM Physical Exam herpetic vasicular rash on left side of scalp forhead with orbital swelling and erythematous conjunctiva, vision stil impaired on left heart RRR lungs clear abd soft ext no edema ASSESSMENT/PLAN Assessment/Plan 1- zoster left eye and forehead, continue IV Acyclovir, to see ophthalmology today for evaluating cornea 2- conjunctivitis not sure herpetic or bacterial superimposed could be both , has significant matting and visual blurriness 3-DM Type II controlled 4- HTN 5- prostate hypertrophy 6_ hx CAD likely home in AM Problems: COMMENT Lab Laboratory Tests Test 01/10/17 16:33 01/10/17 21:07 01/11/17 03:50 01/11/17 08:00 Glucose (Fingerstick) 91mg/dL (70-99) 89mg/dL (70-99) 121mg/dL (70-99) White Blood Count 8.1x10^3/uL (4.0-11.0) Red Blood Count 4.43x10^6/uL (4.30-5.70) Hemoglobin 11.8g/dL (13.0-17.5) Hematocrit 35.9% (39.0-53.0) Mean Corpuscular Volume 81fL (79-100) Mean Corpuscular Hemoglobin 27pg (25-35) Mean Corpuscular Hemoglobin Concent 33g/dL (31-37) Red Cell Distribution Width 16.0% (11.5-14.5) Platelet Count 268x10^3/uL (140-400) Neutrophils (%) (Auto) 55% (31-73) Lymphocytes (%) (Auto) 20% (24-48) Monocytes (%) (Auto) 13% (0-9) Eosinophils (%) (Auto) 12% (0-3) Basophils (%) (Auto) 1% (0-3) Neutrophils # (Auto) 4.4x10^3uL (1.8-7.7) Lymphocytes # (Auto) 1.6x10^3/uL (1.0-4.8) Monocytes # (Auto) 1.1x10^3/uL (0.0-1.1) Eosinophils # (Auto) 1.0x10^3/uL (0.0-0.7) Basophils # (Auto) 0.1x10^3/uL (0.0-0.2) Sodium Level 137mmol/L (136-145) Potassium Level 4.2mmol/L (3.5-5.1) Chloride Level 100mmol/L (98-107) Carbon Dioxide Level 28mmol/L (21-32) Anion Gap 9 (6-14) Blood Urea Nitrogen 10mg/dL (8-26) Creatinine 0.9mg/dL (0.7-1.3) Estimated GFR (Cockcroft-Gault) 83.4 Glucose Level 78mg/dL (70-99) Calcium Level 9.3mg/dL (8.5-10.1) Test 01/11/17 11:46 Glucose (Fingerstick) 91mg/dL (70-99) ROSAS GRIGGS MD Jan 11, 2017 12:09
[2017-01-11] MEDS: GABAPENTIN 100 MG CAPSULE. PO SCH ×2 (14:17→20:31)
[2017-01-11 14:55] VITALS: BP 126/89
[2017-01-11] MEDS: GLIPIZIDE 5 MG TABLET PO SCH (17:24)
[2017-01-11 19:00] VITALS: BP 146/92
[2017-01-11] MEDS: DUTASTERIDE 0.5 MG CAPSULE PO SCH (20:31)
[2017-01-11] MEDS: TAMSULOSIN 0.4 MG CAP.ER.24H. PO SCH (20:31)
[2017-01-11] MEDS: ATORVASTATIN CALCIUM 20 MG TABLET PO SCH (20:31)
[2017-01-11 23:20] VITALS: BP 138/99
[2017-01-12 03:14] VITALS: BP 131/87
[2017-01-12] MEDS: ACYCLOVIR SODIUM 1,000 MG in IV DEXTROSE 5% 250 ML IV SCH (06:06)
[2017-01-12 07:00] VITALS: BP 143/91
[2017-01-12] MEDS: CETIRIZINE HCL 10 MG TABLET PO SCH (08:40)
[2017-01-12] MEDS: LISINOPRIL 20 MG TABLET PO SCH (08:41)
[2017-01-12] MEDS: ASPIRIN 81 MG TAB.CHEW PO SCH (08:41)
[2017-01-12] MEDS: METFORMIN 1,000 MG TABLET PO SCH (08:41)
[2017-01-12] MEDS: METOCLOPRAMIDE 10 MG TABLET PO SCH (08:41)
[2017-01-12] MEDS: GABAPENTIN 100 MG CAPSULE. PO SCH (08:41)
[2017-01-12] MEDS: PANTOPRAZOLE 40 MG TABLET. PO SCH (08:41)
[2017-01-12] MEDS: MULTIVITAMIN with MINERAL TABLET. PO SCH (08:41)
[2017-01-12] MEDS: AMLODIPINE BESYLATE 5 MG TABLET PO SCH (08:42)
[2017-01-12] MEDS: NICOTINE 21MG PATCH. TD SCH (08:43)
--- NOTE | 2017-01-12 09:26 | PDOC ---
Infectious Disease Note Subjective Subjective Doing ok. Vision is stable ROS ROS GEN: Denies fevers, chills, sweats HEENT: Denies blurred vision, sore throat CV: Denies chest pain RESP: Denies shortness of air, cough GI: Denies n/v/d NEURO: Denies confusion, dizziness MSK: Denies weakness, joint pain/swelling Vital Sign Vital Signs Vital Signs Date Time Temp Pulse Resp B/P Pulse Ox O2 Delivery O2 Flow Rate FiO2 01/12/17 08:42 92 143/91 01/12/17 07:00 98.0 18 96 Room Air 98.0 Physical Exam PHYSICAL EXAM GENERAL: NAD, Alert HEENT: PERRL, OC/OP -clear. . Less periorbital swelling and left eye injection. 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 Dino Duncan (Optho) office [phone] who evaluated Mr Ojeda yesterday. No need for IV acyclovir. Has f/u on 01/13 D/w Infection control. No need for Droplet or Airborne precautions JAKUB SOTELO MD Jan 12, 2017 09:26
[2017-01-12] MEDS ORDERED: GABA-585 PO (09:49)
[2017-01-12] MEDS ORDERED: HYDR-971 PO (09:49)
[2017-01-12] MEDS ORDERED: AMLO5TAB2 PO (09:49)
[2017-01-12] MEDS ORDERED: ACYC800T PO (09:49)
--- NOTE | 2017-01-12 09:59 | PDOC ---
SUBJECTIVE Subjective feels ok, pain better control, vision same, erythema in conjunctiva is better OBJECTIVE Vital Signs Vital Signs Date Time Temp Pulse Resp B/P Pulse Ox O2 Delivery O2 Flow Rate FiO2 01/12/17 08:42 92 143/91 01/12/17 08:41 92 143/91 01/12/17 07:00 98.0 92 18 143/91 96 Room Air 98.0 01/12/17 03:14 97.0 87 18 131/87 Room Air 97.0 01/11/17 23:20 97.9 85 18 138/99 96 Room Air 97.9 01/11/17 20:00 Room Air 01/11/17 19:00 97.7 91 20 146/92 97 Room Air 97.7 01/11/17 17:24 80 126/89 01/11/17 14:55 97.8 80 18 126/89 96 Room Air 97.8 01/11/17 11:05 97.6 97 18 135/80 96 Room Air 97.6 I & O Intake and Output 01/12/17 07:00 Intake Total 1420 ml Balance 1420 ml Intake Oral 1420 ml # Voids 6 PHYSICAL EXAM Physical Exam lesions are drying up and conjunctiva is less congested ASSESSMENT/PLAN Assessment/Plan plan to po anti viral this AM , home today to see Dr. Duncan again in AM, was evaluated by Dr. Duncan yesterday discussed with him he has given pt 2 drops samples one is steroid and other is steroid with multi antibiotic, he has uveitis and will be evaluated again tomorrow already has patricia Problems: COMMENT Lab Laboratory Tests Test 01/11/17 11:46 01/11/17 17:25 01/11/17 20:31 Glucose (Fingerstick) 91mg/dL (70-99) 89mg/dL (70-99) 71mg/dL (70-99) ROSAS GRIGGS MD Jan 12, 2017 09:59
--- NOTE | 2017-01-12 10:04 | PDOC3 ---
Discharge Summary* Date of Admission: Jan 11, 2017 Date of Discharge: Jan 12, 2017 Admitting Diagnosis Problems Medical Problems: (1) Herpes zoster Status: Acute (2) Periorbital cellulitis of left eye Status: Acute Final Diagnosis 1- zoster left eye and forehead, with uveitis 2- conjunctivitis 3-DM Type II controlled 4- HTN 5- prostate hypertrophy 6_ hx CAD Problems Medical Problems: (1) Herpes zoster Status: Acute (2) Periorbital cellulitis of left eye Status: Acute CONSULTS ID Dr. Webb Ophthalmology Dr. Duncan Brief Hospital Course Mr. Ojeda is a 71 old [sex] who presented with [ ] Disposition/Orders: D/C to Home CONDITION AT DISCHARGE: Improved Diet: Consistent Carbohydrate Scheduled Acyclovir (Acyclovir) 800 MG PO 5XDAY Amlodipine Besylate (Amlodipine Besylate) 10 MG PO DAILY Aspirin (Aspirin) 1 TAB PO DAILY (Reported) Cetirizine Hcl (Cetirizine Hcl) 1 TAB PO DAILY (Reported) Clindamycin Hcl (Clindamycin Hcl) 3 CAP PO TID Dutasteride (Avodart) 1 CAP PO HS (Reported) Gabapentin (Gabapentin) 100 MG PO TID Glipizide (Glipizide) 1 TAB PO DAILYWSUP (Reported) Hydrocodone/Apap 5-325 ([place] 5-325 Tablet) 1 TAB PO BID Lisinopril (Lisinopril) 1 TAB PO BIDWMEALS (Reported) Metformin Hcl (Metformin Hcl) 1 TAB PO BID (Reported) Metoclopramide Hcl (Metoclopramide Hcl) 10 MG PO BIDAC (Reported) Multivitamin (Multivitamins) 1 TAB PO DAILY (Reported) Omeprazole (Omeprazole) 1 CAP PO DAILY07 (Reported) Rosuvastatin Calcium (Crestor) 1 TAB PO HS (Reported) Tamsulosin Hcl (Tamsulosin Hcl) 1 CAP PO HS (Reported) FOLLOW UP APPOINTMENT: Dr. Duncan tomorrow Dr. Suazo next week Time Spent Total time spent with patient [] minutes for coordination of care, counseling, and education. ROSAS GRIGGS MD Jan 12, 2017 10:04
[2017-01-12 10:43] VITALS: BP 121/95
[2017-01-12] MEDS ORDERED: valACYclovir 500 MG TABLET. PO SCH (14:00)
[2017-01-13] MEDS ORDERED: AMLODIPINE BESYLATE 10 MG TABLET PO SCH (09:00)
== END 2017-01-12 14:16 | disposition home or self-care (01) | DRG 596 ==
LOC: ER 11:45 → 6 SOUTH 12:30
PROVIDERS: ADMIT Internal Medicine; ATTEND Internal Medicine
DX: B02.9 Zoster without complications (principal); B02.32 Zoster iridocyclitis; H10.9 Unspecified conjunctivitis; D64.9 Anemia, unspecified; E11.9 Type 2 diabetes mellitus without complications; E78.00 Pure hypercholesterolemia, unspecified; E78.5 Hyperlipidemia, unspecified; I10 Essential (primary) hypertension; I25.10 Atherosclerotic heart disease of native coronary artery without angina pectoris; K21.9 Gastro-esophageal reflux disease without esophagitis; N40.0 Benign prostatic hyperplasia without lower urinary tract symptoms; Z87.891 Personal history of nicotine dependence; Z79.899 Other long term (current) drug therapy
CPT/HCPCS: 36415; 70481; 80047; 80048; 82947; 83605; 85027; 87040; 87071; 87075; 87205; 90670; 90686; 96365; J0133; J3490; J7030; J8597; 99285-25

== ENCOUNTER → 2018-07-29 | Outpatient (CLI) | payer MEDICARE, OTHER ==
[~2018-07-29] MED LIST changes: +ACYC800T PO; +AMLO5TAB7 PO; +ASPI-630 PO; +CETI10TA16 PO; -CLIN-44 PO; +CLIN150C14 PO; +CRESTOR5 MG PO; +DUTA0.5C PO; +GABA-585 PO; +GLIP5TAB10 PO; +HYDR-971 PO; +LISI-334 PO; +METF10007 PO; +METO10TA PO; +MULT1TAB52 PO; +OMEP40CA5 PO; +REGADENOSON 0.4 MG/5 ML DISP.SYRIN. IV ONE; +TAMS0.4C2 PO
--- NOTE | 2018-07-29 11:55 | RAD ---
MR#: [id number] Date of Study: 07/29/2018 Ordering Physician: THANIA AQUINO, Referring Physician: VICKIE CARIAS Tech: DIALLO Yousif, ARRT (R) (N) APPROVED REPORT Test Type: Pharmacological Stress Nurse/Tech: Madalyn Mcghee R.N. Test Indications: dyspnea, "twinges" in chest Cardiac History: Family history, Hypertension, Diabetes, former smoker Medications: See Electronic Medical Record Medical History: See Electronic Medical Record Resting ECG: NSR Resting Heart Rate: 89 bpm Resting Blood Pressure: 141/45mmHg Pretest Chest Pain: No chest pain Nurse/Tech Notes S1S2. lungs sound clear Consent: The procedure was explained to the patient in lay terms. Informed consent was witnessed. Mike eout was entered into [employer]. History and Stress Test performed by Madalyn Mcghee R.N. Pharm. Details Pharmacologic stress testing was performed using 0.4mg per 5ml of regadenoson given intravenously ove r 7-10 seconds. Stress Symptoms No chest pain or symptoms. POST EXERCISE Reason for Termination: Infusion complete Target HR: 126 Max HR: 131 bpm Max Blood Pressure: 148/77mmHg Blood Pressure response to exercise: Normal blood pressure response during stress. Chest Pain: No. Arrhythmia: No. ST Change: No. INTERPRETATION Stress EKG Conclusion: Non-specific ST/T changes. Imaging Protocol IMAGE PROTOCOL: Rest Tc-99m/stress Tc-99m 1 day Rest: Stress: Viability: Radiopharm.Tc99m [id number] Sestamibi Unji61mAg 32mCi Duration 13min. 13min. Img Date 07/29/2018 07/29/2018 Inj-Img Xxce19ffu. 60min. Rest Admin Site:IV - Right HandAdministrator:DIALLO Yousif, ARRT (R)(N) Stress Admin Site: IV - Right HandAdministrator: RT Nestor (R)(N) STRESS DATA End Diast. Vol.100.0mlLVEDV index BSA49.0ml End Syst. Vol.46.0mlLVESV index BSA22.0ml Myocardial Wgqt750.0gEject. Ximjxyjs59.0% Stress Scores Regional WT2.00Summed WT24.00 Regional WM0.00Summed WM3.00 LV Perfusion There is a large sized, severe in intensity mostly FIXED defect involving the basal to distal inferos eptal, inferior and basal inferolateral wall suggestive of prior infarct in the RCA territory with mi nimal viability based on tracer uptake. There is also a large sized, severe in intensity mid to distal anterior/anteroseptal REVERSIBLE defec t suggestive of LAD territory ischemia. Wall Motion Low normal. EF 55% LV Perfusion 1 TCD/TID: Yes LV Perf. Quant 17 Seg. SSS20.00 17 Seg. SRS12.00 17 Seg. SDS9.00 Stress Defect Extent (% LAD)53.10Rest Defect Extent (% LAD)0.60Rev. Defect Extent (% LAD)52.50 Stress Defect Extent (% LCX) 0.00Rest Defect Extent (% LCX)3.80Rev. Defect Extent (% LCX)0.00 Stress Defect Extent (% RCA)81.10Rest Defect Extent (% RCA)76.70Rev. Defect Extent (% RCA)3.30 Stress Defect Extent (% CHICO)45.70Rest Defect Extent (% CHICO)24.80Rev. Defect Extent (% CHICO)27.60 Other Information Quality:Good Risk Assessment: Moderate-High Risk Conclusion 1. Non-specific EKG changes. 2. Severe abnormalities noted in the LAD and RCA territories with TID of 1.6 3. Mild LV dysfunction. EF 50-55% 4. Moderate to high risk study Recommendations Cardiac cath. Signed by : Thania Aquino, Electronically Approved : 07/29/2018 11:53:58
== END | disposition home or self-care (01) ==
LOC: NM 08:00
PROVIDERS: ATTEND Internal Medicine Cardiovascular Disease
DX: R06.00 Dyspnea, unspecified (principal); I10 Essential (primary) hypertension; E11.9 Type 2 diabetes mellitus without complications; E78.00 Pure hypercholesterolemia, unspecified; E78.5 Hyperlipidemia, unspecified; I25.10 Atherosclerotic heart disease of native coronary artery without angina pectoris; K21.9 Gastro-esophageal reflux disease without esophagitis; Z87.891 Personal history of nicotine dependence; Z82.49 Family history of ischemic heart disease and other diseases of the circulatory system
CPT/HCPCS: 78452; 93017; 96374; 96375; 96376; A9500; J2785

== ENCOUNTER 2018-08-16 05:34 | Inpatient (IN) | payer MEDICARE, OTHER ==
--- NOTE | 2018-08-15 15:32 | PDOC1 ---
History and Physical Date of Admission Date of Admission DATE: 08/16/18 TIME: 7:30 Identification/Chief Complaint Chief Complaint 3 vessel coronary artery disease Source Source: Chart review, Patient History of Present Illness History of Present Illness The patient is a 72-year-old male with a history of type 2 diabetes, hyperlipidemia, hypertension who presents mainly with shortness of breath on minimal exertion with occasional angina. An MPI demonstrated severe ischemia in the LAD and RCA territories. He had a coronary angiogram last week which showed 100% occlusion of the proximal LAD, and 90% mid and distal RCA stenoses, 80% mid left circumflex lesion which is followed by 2 large marginal vessels, and a large diagonal vessel with a 70% proximal stenosis. LV gram shows an ejection fraction of 50-55%. Past Medical History Cardiovascular: CAD, HTN, Hyperlipidemia Pulmonary: No pertinent hx GI: No pertinent hx Heme/Onc: No pertinent hx Hepatobiliary: No pertinent hx Psych: No pertinent hx Rheumatologic: No pertinent hx Infectious disease: No pertinent hx Renal/: No pertinent hx Endocrine: No pertinent hx Past Surgical History Past Surgical History: Appendectomy Family History Family History: No Significant Social History ALCOHOL: none Drugs: None, Other Current Medications Current Medications Current Medications Cefazolin Sodium 1 gm/Sodium Chloride 500 ml @ 500 mls/hr 1X ONCE IRR ; Start 08/16/18 at 06:00; Stop 08/16/18 at 06:59 Potassium Chloride 70 meq/ Sodium Bicarbonate 12.5 meq/Lidocaine HCl 24 ml/ Parenteral Electrolytes 571.5 ml @ 571.5 mls/ hr 1X ONCE IRR ; Start at 06:00; Stop 08/16/18 at 06:59 Potassium Chloride 15 meq/ Sodium Bicarbonate 12.5 meq/Parenteral Electrolytes 520 ml @ 520 mls/hr 1X ONCE IRR ; Start 08/16/18 at 06:00; Stop 08/16/18 at 06:59 Heparin Sodium (Porcine) 89668 unit/Ringer's Solution 1,020 ml @ 1,020 mls/hr 1X ONCE IRR ; Start 08/16/18 at 06:00; Stop 08/16/18 at 06:59 Heparin Sodium (Porcine) 800 unit/ Nitroglycerin 4 mg/Verapamil HCl 8 mg/Sodium Bicarbonate 0.34 meq/Ringer's Solution 512.34 ml @ 512.34 mls/hr 1X ONCE IRR ; Start 08/16/18 at 06:00; Stop 08/16/18 at 06:59 Active Scripts Active Amlodipine Besylate 5 Mg Tablet 10 Mg PO DAILY 30 Days Reported Finasteride 5 Mg Tablet 5 Mg PO HS Metoprolol Tartrate 25 Mg Tablet 1 Tab PO BID Multivitamins (Multivitamin) 1 Each Tablet 1 Tab PO DAILY Cetirizine Hcl 10 Mg Tablet 1 Tab PO DAILY Aspirin 81 Mg Tab.chew 1 Tab PO DAILY Omeprazole 40 Mg Capsule.dr 1 Cap PO DAILY07 Metformin Hcl 1,000 Mg Tablet 1 Tab PO BID Crestor (Rosuvastatin Calcium) 5 Mg Tablet 1 Tab PO HS Glipizide 5 Mg Tablet 1 Tab PO DAILYWSUP Tamsulosin Hcl 0.4 Mg Cap.er.24h 1 Cap PO HS Allergies Allergies: Coded Allergies: No Known Drug Allergies (Unverified , 08/16/18) ROS General: No: Chills, Night Sweats, Fatigue, Malaise, Appetite PSYCHOLOGICAL ROS: No: Anxiety, Behavioral Disorder, Concentration difficultie , Decreased libido, Depression, Disorientation, Hallucinations, Hostility, Irritablity, Memory difficulties, Mood Swings, Obsessive thoughts, Physical abuse, Sexual abuse, Sleep disturbances, Suicidal ideation Eyes: No Blurry vision, No Decreased vision, No Double vision, No Dry eyes, No Excessive tearing, No Eye Pain, No Itchy Eyes, No Loss of vision, No Photophobia , No Scotomata, No Uses contacts, No Uses glasses HEENT: No: Heacaches, Visual Changes, Hearing change, Nasal congestion, Nasal discharge, Oral lesions, Sinus pain, Sore Throat, Epistaxis, Sneezing, Snoring, Tinnitus, Vertigo, Vocal changes ALLERGY AND IMMUNOLOGY: No: Hives, Insect Bite Sensitivity, Itchy/Watery Eyes, Nasal Congestion, Post Nasal Drip, Seasonal Allergies Hematological and Lymphatic: No: Bleeding Problems, Blood Clots, Blood Transfusions, Brusing, Night Sweats, Pallor, Swollen Lymph Nodes ENDOCRINE: No: Breast Changes, Galactorrhea, Hair Pattern Changes, Hot Flashes , Malaise/lethargy, Mood Swings, Palpitations, Polydipsia/polyuria, Skin Changes , Temperature Intolerance, Unexpected Weight Changes Respiratory: YES: Shortness of breath; No: Cough, Hemoptysis, Orthopnea, Pleuritic Pain, SOB with excertion, Sputum Changes, Stridor, Tachypnea, Wheezing Cardiovascular: yes Chest Pain; No Palpitations, No Orthopnea, No Paroxysmal Noc. Dyspnea, No Edema, No Lt Headedness Gastrointestinal: No Nausea, No Vomiting, No Abdominal Pain, No Diarrhea, No Constipation, No Melena, No Hematochezia Genitourinary: No Dysuria, No Frequency, No Incontinence, No Hematuria, No Retention, No Discharge, No Urgency, No Pain, No Flank Pain Musculoskeletal: No Gait Disturbance, No Joint Pain, No Joint Stiffness, No Joint Swelling, No Muscle Pain, No Muscular Weakness, No Pain In:, No Swelling In: Neurological: No Behavorial Changes, No Bowel/Bladder ControlChng, No Confusion , No Dizziness, No Gait Disturbance, No Headaches, No Impaired Coord/balance, No Memory Loss, No Numbness/Tingling, No Seizures, No Speech Problems, No Tremors, No Visual Changes, No Weakness Skin: No Dry Skin, No Eczema, No Hair Changes, No Lumps, No Mole Changes, No Mottling, No Nail Changes, No Pruritus, No Rash, No Skin Lesion Changes, No Acne Physical Exam General: Alert, Oriented X3, No acute distress HEENT: Atraumatic, PERRLA Lungs: Clear to auscultation, Normal air movement Heart: S1S2, RRR, no gallops, no murmurs Abdomen: Normal bowel sounds, Soft, No tenderness, No hepatosplenomegaly Rectal Exam: deferred Extremities: No edema, Normal pulses Skin: No significant lesion Neuro: Normal gait, Normal speech, Strength at 5/5 X4 ext, Cranial nerves 3-12 NL, Reflexes 2+ Psych/Mental Status: Mental status NL Images Images 1. Hemodynamics: Left ventricular end-diastolic pressure of 22 mmHg. No pullback gradient across the aortic valve. 2. Left ventriculography: Normal left ventricle systolic function with ejection fraction estimated at 55%. 1-2+ mitral regurgitation seen. 3. Coronary angiography: a. The left main coronary artery arose from the left sinus of Valsalva, gave rise to the left anterior descending and left circumflex arteries and showed 20 % distal segment stenosis. b. The left anterior descending artery showed chronic total occlusion in the midsegment with distal reconstitution from left to left collaterals. The diagonal branch showed 70% stenosis in the proximal segment. c. The left circumflex artery is a large caliber vessel that showed 90% stenosis in the midsegment. d. The right coronary artery was a large and dominant vessel arising from the right sinus of Valsalva that showed 80% stenosis in the midsegment and 90-95% stenosis in the distal segment. Conclusion 1. Severe three-vessel coronary artery disease 2. Normal left ventricle systolic function with ejection fraction estimated at 55%. VTE Prophylaxis Ordered VTE Prophylaxis Devices: Yes VTE Pharmacological Prophylaxi: No Assessment/Plan Assessment/Plan 72-year-old male with a history of type 2 diabetes, hyperlipidemia, hypertension who presents mainly with shortness of breath on minimal exertion with occasional angina. An MPI demonstrated severe ischemia in the LAD and RCA territories. He had a coronary angiogram showed 100% occlusion of the proximal LAD, and 90% mid and distal RCA stenoses, 80% mid left circumflex lesion which is followed by 2 large marginal vessels, and a large diagonal vessel with a 70% proximal stenosis. LV gram shows an ejection fraction of 50-55%. The patient is a good candidate for CABG. He will need 4 grafts a HURTADO to the LAD, radial to OM, SVG to diagonal, SVG to RPDA. The risks which include but are not limited to mortality 1%, stroke 1%, renal failure requiring dialysis 1%, pneumonia 5%, platelet ventilator dependence to 3 %, wound infection 5%, re-sternotomy for bleeding 5%, atrial fibrillation 20%, were explained to the patient who accepts these risks and agrees to proceed. He is right-handed and his left-sided Ayaan's test is good. SUKHDEV ROCHA MD Aug 15, 2018 15:31
[~2018-08-16] VITALS: Ht 175.3 cm; Wt 87.1 kg
[2018-08-16] VITALS (12 sets, daily range): BP systolic 108–155; BP diastolic 51–71
[~2018-08-16 05:34] MED LIST changes: +FINA5TAB4 PO; +METO25TA4 PO; -REGADENOSON 0.4 MG/5 ML DISP.SYRIN. IV ONE
[2018-08-16] MEDS ORDERED: POTASSIUM CHLORIDE 15 MEQ, SODIUM BICARBONATE VIAL 12.5 MEQ in IV ELECTROLYTE-S (PH 7.4... IRR ONE (06:00)
[2018-08-16] MEDS ORDERED: 0.9 % SODIUM CHLORIDE 20 ML VIAL. IJ ONE ×3 (06:00→06:01)
[2018-08-16] MEDS ORDERED: HEPARIN PRESERVATIVE FREE 800 UNIT, NITROGLYCERIN 4 MG, VERAPAMIL 8 MG, SODIUM BICARBON... IRR ONE ×5 (06:00)
[2018-08-16] MEDS ORDERED: PAPAVERINE 60 MG/2 ML VIAL FOR OR ONLY. ONE (06:00)
[2018-08-16] MEDS ORDERED: SURGICEL HEMOSTAT 4X8 EACH. ONE (06:00)
[2018-08-16] MEDS ORDERED: HEPARIN 20,000 UNIT in IV RINGERS,LACTATED 1000ML 1,000 ML IRR ONE (06:00)
[2018-08-16] MEDS ORDERED: VANCOMYCIN 10GM VIAL for OR. ONE (06:00)
[2018-08-16] MEDS ORDERED: POTASSIUM CHLORIDE 70 MEQ, SODIUM BICARBONATE VIAL 12.5 MEQ, LIDOCAINE 2% 24 ML in IV E... IRR ONE (06:00)
[2018-08-16] MEDS ORDERED: ASPIRIN 300 MG SUPP.RECT ONE (06:01)
[2018-08-16] MEDS ORDERED: ETOMIDATE 20 MG/10 ML VIAL. IV ONE (06:21)
[2018-08-16] MEDS ORDERED: PHENYLEPHRINE 10 MG/ML VIAL. ONE (06:22)
[2018-08-16] MEDS ORDERED: LIDOCAINE 1% PF 5 ML VIAL. ONE (06:22)
[2018-08-16] MEDS ORDERED: HEPARIN 30,000 UNIT/30 ML VIAL. ONE ×2 (06:22→13:34)
[2018-08-16] MEDS ORDERED: AMINOCAPROIC ACID 5,000 MG/20 ML VIAL. IV ONE ×2 (06:22→12:55)
[2018-08-16] MEDS ORDERED: ePHEDrine PF IN SALINE 50 MG/5 ML DISP.SYRIN IV ONE (06:22)
[2018-08-16] MEDS ORDERED: NITROGLYCERIN PREMIX 250 ML IV ONE (06:23)
[2018-08-16] MEDS ORDERED: SUFentanil 100 MCG/2 ML AMPUL. ONE ×3 (06:23→13:40)
[2018-08-16] MEDS ORDERED: MIDAZOLAM HCL/PF 2 MG/2 ML VIAL. ONE (06:24)
[2018-08-16] MEDS ORDERED: ROCURONIUM 100 MG/10 ML VIAL. ONE ×2 (06:25→10:33)
[2018-08-16] MEDS ORDERED: LIDOCAINE 1% PF 2 ML VIAL. ID PRN (07:00)
[2018-08-16] MEDS ORDERED: PROCHLORPERAZINE 10 MG/2 ML VIAL. IV PRN (07:00)
[2018-08-16] MEDS ORDERED: IV RINGERS,LACTATED 1000ML 1,000 ML IV SCH (07:00)
[2018-08-16] MEDS ORDERED: MORPHINE SULFATE 2 MG/ML VIAL. IV PRN (07:00)
[2018-08-16] MEDS ORDERED: HYDROmorphone 2 MG/ML VIAL IV PRN (07:00)
[2018-08-16] MEDS ORDERED: ONDANSETRON PF 4 MG/2 ML VIAL. IV PRN (07:00)
[2018-08-16] MEDS ORDERED: fentaNYL PF VIAL 100 MCG/2 ML VIAL IV PRN ×2 (07:00)
[2018-08-16] MEDS ORDERED: HEPARIN for IV BOLUS 10,000 UNIT/10 ML VIAL. ONE ×2 (09:16→13:34)
[2018-08-16] MEDS ORDERED: MIDAZOLAM HCL/PF 5 MG/5 ML VIAL. ONE ×2 (09:20→12:27)
[2018-08-16] MEDS ORDERED: INSULIN REGULAR VIAL 150 UNIT in 0.9 % SODIUM CHLORIDE 150ML 150 ML IV PRN ×2 (10:15→14:45)
[2018-08-16] MEDS ORDERED: ceFAZolin SODIUM 1 GM VIAL ONE ×2 (10:35)
[2018-08-16] MEDS ORDERED: PROTAMINE 250 MG/25 ML VIAL IV ONE (13:16)
[2018-08-16] MEDS ORDERED: PROTAMINE 50 MG/5 ML VIAL. IV ONE ×2 (13:17)
[2018-08-16] MEDS ORDERED: ALBUMIN HUMAN 5% 500 ML IV ONE (13:23)
[2018-08-16] MEDS ORDERED: ALBUMIN HUMAN 5% 0 ML IV ONE (13:23)
[2018-08-16] MEDS ORDERED: MANNITOL 25% 12.5 G/50 ML VIAL FOR OR. ONE (13:34)
[2018-08-16] MEDS ORDERED: LIDOCAINE 2% PF Vial for OR 5 ML VIAL. ONE (13:34)
[2018-08-16] MEDS ORDERED: ALBUMIN HUMAN 25% 100 ML IV ONE (13:34)
[2018-08-16] MEDS ORDERED: MAGNESIUM SULFATE 5 GM/10 ML VIAL. ONE (13:34)
[2018-08-16] MEDS ORDERED: CALCIUM CHLORIDE 1,000 MG/10 ML DISP.SYRIN ONE (13:34)
[2018-08-16 14:14] LABS: HEMATOCRIT 22.1 % (39.0-53.0); HEMOGLOBIN 7.2 g/dL (13.0-17.5); WHITE BLOOD COUNT 8.9 x10^3/uL (4.0-11.0)
[2018-08-16 14:25] LABS: PROTHROMBIN TIME PATIENT 17.9 SEC (11.7-14.0)
--- NOTE | 2018-08-16 14:28 | PDOC ---
BRIEF OPERATIVE NOTE Date: Aug 16, 2018 Pre-Op Diagnosis Unstable angina Severe 3 vessel coronary artery disease Severe COPD Hypertension Hyperlipidemia Post-Op Diagnosis Unstable angina Severe 3 vessel coronary artery disease Severe COPD Hypertension Hyperlipidemia Procedure Performed CABG x 4 (HURTADO to LAD, radial to OM1, SVG to diag, SVG to RPDA) Left radial artery harvest Left endoscopic greater saphenous vein harvest Surgeon Sukhdev Rocha MD Engrosser Liz Douglas, TRADE MANAGERReagan Ireland [facility] Anesthesiologist Dr Culp Anesthesia Type: General Blood Loss Cellsaver IV Fluid Crystalloid: 1500 mls Albumin: 500 mls Cellsaver: 500 mls Urine Output 450 mls Specimens Obtained None Findings Good 2mm LAD, diag, OM1 and RPDA targets Very small radial artery conduit Moderate size vein conduit Off CPB without inotropes CPB time: 135 min x-clamp time: 116 min Complications None SUKHDEV ROCHA MD Aug 16, 2018 14:28
--- NOTE | 2018-08-16 14:30 | PDOC4 ---
Operative Note Operative Note Date Aug 16, 2018 Preoperative diagnosis Unstable angina Severe 3 vessel coronary artery disease Severe COPD Hypertension Hyperlipidemia Postoperative diagnosis Unstable angina Severe 3 vessel coronary artery disease Severe COPD Hypertension Hyperlipidemia Procedure performed CABG x 4 (HURTADO to LAD, radial to OM1, SVG to diag, SVG to RPDA) Left radial artery harvest Left endoscopic greater saphenous vein harvest Surgeon Samm Rocha MD Reservationist Liz Douglas, GONZALO Patel Anesthesiologist Dr Culp Anesthesia type General Blood loss Cellsaver IV fluids Crystalloid: 1500 mls Albumin: 500 mls Cellsaver: 500 mls Urine output 450 mls Specimens obtained None Findings Good 2mm LAD, diag, OM1 and RPDA targets Very small radial artery conduit Moderate size vein conduit Off CPB without inotropes Diffuse severe calcifications of the ascending aorta. Very challenging to find soft appropriate cannulation and proximal anastomotic sites CPB time: 135 min x-clamp time: 116 min Complications None Indication The patient is a 72-year-old male with a history of type 2 diabetes, hyperlipidemia, hypertension who presents mainly with shortness of breath on minimal exertion with occasional angina. An MPI demonstrated severe ischemia in the LAD and RCA territories. He had a coronary angiogram last week which showed 100% occlusion of the proximal LAD, and 90% mid and distal RCA stenoses, 80% mid left circumflex lesion which is followed by 2 large marginal vessels, and a large diagonal vessel with a 70% proximal stenosis. LV gram shows an ejection fraction of 50-55%. Operation After appropriate identification, the patient was brought to the operating room and placed supine on the operating table. Anesthesia was induced and the airway was secured with an endotracheal tube. A right IJ [place]-Marcial catheter was placed. A right radial arterial line was placed. Antibiotics were delivered and the patient was preped and draped in the usual standard surgical sterile fashion. A timeout was then performed. A median sternotomy was performed and the left internal mammary artery was harvested, which was of moderate size, with excellent flow. The left radial artery was harvested with an incision from the wrist to the antecubital fossa. The artery was harvested with the harmonic device. Pripr to dividing the artery, O2 saturation were checked woth the clamp on the radial to confirm adequate collateral circulation. The left radial was of relatively small size. Simultaneously the left greater saphenous vein was harvested endoscopically, which was of moderate quality and caliber. The pericardium was incised. The patient was heparinized. Cardiopulmonary bypass was established through the ascending aorta and the right atrium. The aortic cannula was placed in the proximal arch, at the level of the innominate artery and the antegrade/root vent needle was placed in the distal ascending aorta on the outer curvature. These were the only soft spots on the mid-distal ascending aorta. A retrograde catheter was placed in the coronary sinus. The patient was cooled to 34. Arrest was achieved with induction antegrade and retrograde cold blood cardioplegia. The cross-clamp was applied and diastolic arrest was achieved. Intermittent dosages of antegrade and retrograde cardioplegia were given every 20 minutes. Grafts: Saphenous vein graft to right posterior descending coronary artery, end to side anastomosis with 7-0 Prolene. 2 mm vessel. Left radial artery to obtuse marginal 1 coronary artery, end to side anastomosis with 7-0 Prolene, 2 mm vessel. Saphenous vein graft to diagonal coronary artery, end to side anastomosis with 7 -0 Prolene, 2 mm vessel. Left internal mammary artery to distal left anterior descending coronary artery , end to side anastomosis with 7-0 Prolene. 2 mm vessel. Three proximal anastomosis were performed using a 5-0 Prolene running suture. The anastomosis were done at the level of the sinotubular junction where the aorta was not calcified. The cross-clamp was removed. The heart was allowed to rewarm and reperfuse. The grafts were de-aired. The patient resumed normal sinus rhythm after cardioversion and was from cardiopulmonary bypass without pharmacologic support. All cannulae were removed. Heparin was reversed with protamine. Atrial and ventricular pacing wires were placed. Hemostasis was confirmed. Angled 32 Welsh chest tubes were placed in the left pleural space, a 32Fr angled in the posterior pericardium and a 32 straight in the anterior pericardium. The sternotomy was closed with seven stainless steel wires. The incision was closed with a layer of 0 Vicryl, followed by 2-0 Vicryl and then 4- 0 Monocryl for the epidermis. Sterile dressings were applied. The total cardiopulmonary bypass time was 135 minutes and the cross-clamp time was 116 minutes. The instrument, sponge and needle counts were correct. The patient was then transferred to the ICU in critical condition. SAMM ROCHA MD Aug 16, 2018 14:30
[2018-08-16 14:43] LABS: ART BE ISTAT 0 mmol/L (0-3); ART GLUC ISTAT 145 mg/dL (70-99); ART HCO3 ISTAT 25 mmol/L (21-28); ART HCT ISTAT 27 % (37-52); ART HGB ISTAT 9.2 g/dL (14-18); ART ION CA ISTAT 1.14 mmol/L (1.13-1.32); ART K ISTAT 5.6 mmol/L (3.5-5.0); ART NA ISTAT 133 mmol/L (135-145); ART PCO2 ISTAT 42 mmHg (35-45); ART PH ISTAT 7.38 (7.35-7.45); ART PO2 ISTAT 335 mmHg (75-100); ART SAT O2 SAT 100 % (95-99); ART TCO2 ISTAT 26 mmol/L (21-32)
[2018-08-16 14:43] LABS: ART BE ISTAT 2 mmol/L (0-3); ART GLUC ISTAT 149 mg/dL (70-99); ART HCO3 ISTAT 27 mmol/L (21-28); ART HCT ISTAT 31 % (37-52); ART HGB ISTAT 10.5 g/dL (14-18); ART ION CA ISTAT 1.23 mmol/L (1.13-1.32); ART K ISTAT 4.1 mmol/L (3.5-5.0); ART NA ISTAT 133 mmol/L (135-145); ART PCO2 ISTAT 45 mmHg (35-45); ART PH ISTAT 7.38 (7.35-7.45); ART PO2 ISTAT 386 mmHg (75-100); ART SAT O2 SAT 100 % (95-99); ART TCO2 ISTAT 28 mmol/L (21-32)
[2018-08-16 14:43] LABS: FIO2 ISTAT 100; VEN BASE EXCESS ISTAT 0 mmol/L (0-3); VEN GLUC ISTAT 159 mg/dL (70-99); VEN HCO3 ISTAT 25 mmol/L (24-28); VEN HCT ISTAT 30 % (37-52); VEN HGB ISTAT 10.2 g/dL (14-18); VEN ION CA ISTAT 1.22 mmol/L (1.13-1.32); VEN K ISTAT 4.6 mmol/L (3.5-5.0); VEN NA ISTAT 133 mmol/L (135-145); VEN O2 ISTAT 341 mmHg (20-40); VEN PCO2 ISTAT 45 mmHg (41-51); VEN PH ISTAT 7.36 (7.32-7.42); VEN SO2 ISTAT 100 %; VEN TCO2 ISTAT 27 mmol/L (21-32)
[2018-08-16 14:43] LABS: ART BE ISTAT 0 mmol/L (0-3); ART GLUC ISTAT 162 mg/dL (70-99); ART HCO3 ISTAT 24 mmol/L (21-28); ART HCT ISTAT 26 % (37-52); ART HGB ISTAT 8.8 g/dL (14-18); ART ION CA ISTAT 1.17 mmol/L (1.13-1.32); ART K ISTAT 4.9 mmol/L (3.5-5.0); ART NA ISTAT 132 mmol/L (135-145); ART PCO2 ISTAT 39 mmHg (35-45); ART PO2 ISTAT 276 mmHg (75-100); ART SAT O2 SAT 100 % (95-99); ART TCO2 ISTAT 25 mmol/L (21-32)
[2018-08-16 14:44] LABS: ART BE ISTAT -2 mmol/L (0-3); ART GLUC ISTAT 131 mg/dL (70-99); ART HCO3 ISTAT 24 mmol/L (21-28); ART HCT ISTAT 22 % (37-52); ART HGB ISTAT 7.5 g/dL (14-18); ART ION CA ISTAT 1.86 mmol/L (1.13-1.32); ART K ISTAT 3.9 mmol/L (3.5-5.0); ART NA ISTAT 134 mmol/L (135-145); ART PCO2 ISTAT 47 mmHg (35-45); ART PH ISTAT 7.31 (7.35-7.45); ART PO2 ISTAT 113 mmHg (75-100); ART SAT O2 SAT 98 % (95-99); ART TCO2 ISTAT 25 mmol/L (21-32)
[2018-08-16 14:44] LABS: ART BE ISTAT -1 mmol/L (0-3); ART GLUC ISTAT 182 mg/dL (70-99); ART HCO3 ISTAT 24 mmol/L (21-28); ART HCT ISTAT 26 % (37-52); ART HGB ISTAT 8.8 g/dL (14-18); ART ION CA ISTAT 1.16 mmol/L (1.13-1.32); ART K ISTAT 4.8 mmol/L (3.5-5.0); ART NA ISTAT 132 mmol/L (135-145); ART PCO2 ISTAT 43 mmHg (35-45); ART PH ISTAT 7.36 (7.35-7.45); ART PO2 ISTAT 260 mmHg (75-100); ART SAT O2 SAT 100 % (95-99); ART TCO2 ISTAT 25 mmol/L (21-32)
[2018-08-16 14:44] LABS: ART BE ISTAT -1 mmol/L (0-3); ART GLUC ISTAT 164 mg/dL (70-99); ART HCO3 ISTAT 25 mmol/L (21-28); ART HCT ISTAT 25 % (37-52); ART HGB ISTAT 8.5 g/dL (14-18); ART ION CA ISTAT 1.17 mmol/L (1.13-1.32); ART K ISTAT 4.6 mmol/L (3.5-5.0); ART NA ISTAT 134 mmol/L (135-145); ART PCO2 ISTAT 48 mmHg (35-45); ART PH ISTAT 7.32 (7.35-7.45); ART PO2 ISTAT 260 mmHg (75-100); ART SAT O2 SAT 100 % (95-99); ART TCO2 ISTAT 26 mmol/L (21-32)
[2018-08-16 14:44] LABS: ART BE ISTAT -2 mmol/L (0-3); ART GLUC ISTAT 150 mg/dL (70-99); ART HCO3 ISTAT 25 mmol/L (21-28); ART HCT ISTAT 23 % (37-52); ART HGB ISTAT 7.8 g/dL (14-18); ART ION CA ISTAT 2.31 mmol/L (1.13-1.32); ART K ISTAT 4.4 mmol/L (3.5-5.0); ART NA ISTAT 132 mmol/L (135-145); ART PCO2 ISTAT 54 mmHg (35-45); ART PH ISTAT 7.27 (7.35-7.45); ART PO2 ISTAT 209 mmHg (75-100); ART SAT O2 SAT 100 % (95-99); ART TCO2 ISTAT 27 mmol/L (21-32)
[2018-08-16 14:44] LABS: ART BE ISTAT -4 mmol/L (0-3); ART GLUC ISTAT 91 mg/dL (70-99); ART HCO3 ISTAT 22 mmol/L (21-28); ART HCT ISTAT 20 % (37-52); ART HGB ISTAT 6.8 g/dL (14-18); ART ION CA ISTAT 1.48 mmol/L (1.13-1.32); ART K ISTAT 3.9 mmol/L (3.5-5.0); ART NA ISTAT 139 mmol/L (135-145); ART PCO2 ISTAT 39 mmHg (35-45); ART PH ISTAT 7.36 (7.35-7.45); ART PO2 ISTAT 193 mmHg (75-100); ART SAT O2 SAT 100 % (95-99); ART TCO2 ISTAT 23 mmol/L (21-32)
[2018-08-16] MEDS ORDERED: ASPIRIN 300 MG SUPP.RECT PR PRN (14:45)
[2018-08-16] MEDS ORDERED: DEXTROSE 50% 25 GM / 50ML DISP.SYRIN. IV PRN (14:45)
[2018-08-16] MEDS ORDERED: ELECTROLYTE (ICU) PROTOCOL. MC PRN (14:45)
[2018-08-16] MEDS ORDERED: AMIODARONE 150 MG in IV DEXTROSE 5% 100ML 100 ML IV PRN (14:45)
[2018-08-16] MEDS ORDERED: AMIODARONE 900 MG in IV DEXTROSE 5% 500 ML IV PRN ×2 (14:45→15:30)
[2018-08-16] MEDS ORDERED: ALBUMIN HUMAN 5% 250 ML IV PRN (14:45)
[2018-08-16] MEDS ORDERED: 0.9 % SODIUM CHLORIDE 10 ML DISP.SYRIN. IV PRN (14:45)
[2018-08-16] MEDS ORDERED: PHENYLEPHRINE INJ 20 MG in IV NORMAL SALINE 250ML 250 ML IV PRN (14:45)
[2018-08-16] MEDS ORDERED: MEPERIDINE PF 25 MG/ML VIAL. IV PRN (14:45)
[2018-08-16] MEDS ORDERED: ALBUTEROL SULFATE 2.5 MG/3 ML NEBU. NEB PRN (14:45)
[2018-08-16] MEDS ORDERED: PROPOFOL 100 ML IV PRN (14:45)
[2018-08-16] MEDS ORDERED: MAGNESIUM SULFATE 1GM 100 ML IV PRN (14:45)
[2018-08-16] MEDS ORDERED: NITROGLYCERIN PREMIX 250 ML IV PRN (14:45)
[2018-08-16] MEDS ORDERED: BISACODYL 10 MG SUPP.RECT. PR PRN (14:45)
--- NOTE | 2018-08-16 14:50 | RAD ---
Portable chest x-ray compared to similar examination dated August 09, 2018 for status post open heart surgery. FINDINGS: Heart size is mildly enlarged. A [place]-Marcial catheter is present with the distal tip in the right main pulmonary artery. Endotracheal tube is present and appears appropriately positioned. 2 mediastinal drains and one left chest tube are noted. There is no pneumothorax. No focal infiltrate, and no pleural effusion. Mildly increased central pulmonary vascularity without devaughn pulmonary edema. Atherosclerosis. IMPRESSION: 1. Postsurgical changes as described, with mild increased central pulmonary vascular congestion. Electronically signed by: Ron Isbell MD (08/16/2018 2:46 PM) [id number]
[2018-08-16 15:12] LABS: BASE EXCESS COOX -5 mmol/L (-3-3); HCO3 COOX 21 mmol/L (21-28); METHEMOGLOBIN 0.4 % (0.0-1.9); OXYHEMOGLOBIN 97.6 %; PCO2 COOX 43 mmHg (35-46); PO2 COOX 167 mmHg (65-108); SAT O2 COOX 98 % (92-99)
[2018-08-16] MEDS: MORPHINE SULFATE 2 MG/ML VIAL. IV PRN ×3 (15:16→21:44)
[2018-08-16 15:18] LABS: HEMOGLOBIN 8.6 g/dL (13.0-17.5); RED BLOOD COUNT 3.58 x10^6/uL (4.30-5.70); RED CELL DISTRIBUTION WIDTH 17.6 % (11.5-14.5)
[2018-08-16 15:27] LABS: PROTHROMBIN TIME PATIENT 16.4 SEC (11.7-14.0)
[2018-08-16] MEDS ORDERED: AMIODARONE 150 MG in IV DEXTROSE 5% 100ML 100 ML IV ONE (15:30)
[2018-08-16 15:43] LABS: CALCIUM 10.6 mg/dL (8.5-10.1); CREATININE 0.9 mg/dL (0.7-1.3); GFR 83.2; MAGNESIUM 2.5 mg/dL (1.8-2.4)
[2018-08-16 15:45] LABS: POTASSIUM 4.2 mmol/L (3.5-5.1)
[2018-08-16] MEDS ORDERED: POTASSIUM CHLORIDE 20MEQ 50 ML IV ONE (17:30)
[2018-08-16 17:34] LABS: BASE EXCESS ABG -5 mmol/L (-3-3); HCO3 ABG 19 mmol/L (21-28); PCO2 ABG 34 mmHg (35-46); PO2 ABG 92 mmHg (65-108); SAT O2 ABG 96 % (92-99)
[2018-08-16] MEDS ORDERED: SODIUM BICARB ADULT 8.4% 50 MEQ/50 ML DISP.SYRIN. IV ONE (18:00)
[2018-08-16] MEDS: oxyCODONE/APAP 5/325 1 TAB TABLET PO PRN ×2 (18:24→21:45)
[2018-08-16 20:06] LABS: HEMATOCRIT 27.1 % (39.0-53.0); HEMOGLOBIN 9.1 g/dL (13.0-17.5); RED BLOOD COUNT 3.61 x10^6/uL (4.30-5.70)
[2018-08-16 20:21] LABS: ALBUMIN 3.4 g/dL (3.4-5.0); ALBUMIN/GLOBULIN RATIO 1.4 (1.0-1.7); CALCIUM 9.7 mg/dL (8.5-10.1); GFR 73.7; MAGNESIUM 2.1 mg/dL (1.8-2.4); POTASSIUM 4.6 mmol/L (3.5-5.1); TOTAL BILIRUBIN 0.9 mg/dL (0.2-1.0); TOTAL PROTEIN 5.8 g/dL (6.4-8.2)
[2018-08-16] MEDS ORDERED: MAGNESIUM SULFATE 1GM 100 ML IV ONE (20:30)
[2018-08-16] MEDS: FAMOTIDINE 20 MG/2 ML VIAL IVP SCH (20:54)
[2018-08-16] MEDS: TAMSULOSIN 0.4 MG CAP.ER.24H. PO SCH (20:54)
[2018-08-16] MEDS: SENNOSIDES/DOCUSATE 8.6/50MG TABLET. PO SCH (20:54)
[2018-08-16] MEDS: FINASTERIDE 5 MG TABLET. PO SCH (20:54)
[2018-08-16] MEDS: ATORVASTATIN CALCIUM 20 MG TABLET PO SCH (20:54)
[2018-08-16] MEDS ORDERED: CHLORHEXIDINE 0.12% 15 ML MOUTHWASH. MM SCH (21:00)
[2018-08-16] MEDS: ONDANSETRON PF 4 MG/2 ML VIAL. IV PRN (21:44)
[2018-08-17] VITALS (24 sets, daily range): BP systolic 87–128; BP diastolic 51–71
[2018-08-17] MEDS: oxyCODONE/APAP 5/325 1 TAB TABLET PO PRN ×5 (02:03→21:11)
[2018-08-17] MEDS: MORPHINE SULFATE 2 MG/ML VIAL. IV PRN (02:03)
--- NOTE | 2018-08-17 03:22 | EKG ---
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
[2018-08-17 03:53] LABS: HEMATOCRIT 26.7 % (39.0-53.0); HEMOGLOBIN 8.8 g/dL (13.0-17.5); RED BLOOD COUNT 3.55 x10^6/uL (4.30-5.70); RED CELL DISTRIBUTION WIDTH 18.2 % (11.5-14.5); WHITE BLOOD COUNT 9.8 x10^3/uL (4.0-11.0)
[2018-08-17 04:07] LABS: CALCIUM 9.6 mg/dL (8.5-10.1); CREATININE 1.2 mg/dL (0.7-1.3); GFR 59.7; POTASSIUM 4.3 mmol/L (3.5-5.1)
[2018-08-17] MEDS ORDERED: POTASSIUM CHLORIDE 20MEQ 50 ML IV ONE (05:00)
[2018-08-17] MEDS ORDERED: MAGNESIUM SULFATE 1GM 100 ML IV ONE (05:00)
[2018-08-17] MEDS: ASPIRIN ENTERIC COATED 325 MG TABLET.DR. PO SCH (07:55)
[2018-08-17] MEDS: SENNOSIDES/DOCUSATE 8.6/50MG TABLET. PO SCH ×2 (07:55→21:11)
--- NOTE | 2018-08-17 07:55 | RAD ---
PORTABLE CHEST 1V Clinical indications: CABG; CHEST PAIN postoperative follow-up. COMPARISON: August 16, 2018. Findings: There is increasing medial left lung base infiltrate or atelectasis. Small left-sided pleural effusion is seen. Right lung field is clear. No perihilar pulmonary edema is seen. No pneumothorax is evident. ET tube has been removed. [place]-Marcial catheter has been replaced with a right IJ line. The tip of this line is seen within the upper superior vena cava. Chest tubes are in place. Mediastinum and heart size are stable. IMPRESSION: Increase in the medial left lung base infiltrate or atelectasis. Small left-sided pleural effusion. Electronically signed by: Dusty Rivero MD (08/17/2018 7:52 AM) [facility]
[2018-08-17] MEDS: FAMOTIDINE 20 MG/2 ML VIAL IVP SCH ×2 (07:56→21:10)
[2018-08-17] MEDS: METOPROLOL TART IMMED RELEASE 25 MG TABLET. PO SCH ×2 (07:57→23:38)
--- NOTE | 2018-08-17 13:44 | PDOC ---
Progress Note Subjective Subjective Doing well. Normotensive, SR. On 2 lit NC. Ambulated already twice this morning. Minimal tube drainage. [place] UO. CXR OK. Hb 8.8 Creat 1.2. [place] and a-line have been removed. ROS ROS No nausea No vomiting No pain No rash Vital Sign Vital Signs Vital Signs Date Time Temp Pulse Resp B/P (MAP) Pulse Ox O2 Delivery O2 Flow Rate FiO2 08/17/18 13:08 21 99 Nasal Cannula 2.0 08/17/18 13:00 87 108/64 (79) 08/17/18 12:00 98.9 98.9 Physical Exam PHYSICAL EXAM GENERAL: NAD, Alert HEENT: PERRL, OC/OP NECK: Supple, no JVD, no LN LUNGS: Clear HEART: S1S2, no gallop, no murmur ABD: Soft, NT, no organomegaly, no rebound EXT: No edema, no cyanosis TOP SPOTTER: Alert, oriented x 3, no focal neurologic deficit SKIN: No rash IV: ok Labs Lab Laboratory Tests Test 08/16/18 14:05 08/16/18 14:27 08/16/18 15:06 08/16/18 15:10 White Blood Count 8.9 x10^3/uL (4.0-11.0) 11.0 x10^3/uL (4.0-11.0) Hemoglobin 7.2 g/dL (13.0-17.5) 8.6 g/dL (13.0-17.5) Hematocrit 22.1 % (39.0-53.0) 27.0 % (39.0-53.0) Platelet Count 206 x10^3/uL (140-400) 233 x10^3/uL (140-400) Prothrombin Time 17.9 SEC (11.7-14.0) 16.4 SEC (11.7-14.0) Prothromb Time International Ratio 1.5 (0.8-1.1) 1.4 (0.8-1.1) Activated Partial Thromboplast Time 36 SEC (24-38) 34 SEC (24-38) Fibrinogen 189 mg/dL (200-440) Bedside Hemoglobin (Calculated) 6.8 g/dL (14-18) Bedside Hematocrit 20 % (37-52) Bedside Arterial pH 7.36 (7.35-7.45) Bedside Arterial pCO2 39 mmHg (35-45) Bedside Arterial pO2 193 mmHg (75-100) Bedside Arterial HCO3 22 mmol/L (21-28) Bedside Arterial Total CO2 23 mmol/L (21-32) Arterial Bld O2 Saturation (Measur) 100 % (95-99) Bedside Arterial Blood Base Excess -4 mmol/L (0-3) Bedside FiO2 100.0 Bedside Sodium 139 mmol/L (135-145) Bedside Potassium 3.9 mmol/L (3.5-5.0) Glucose Level 91 mg/dL (70-99) 98 mg/dL (70-99) Bedside Ionized Calcium (July) 1.48 mmol/L (1.13-1.32) Glucose (Fingerstick) 104 mg/dL (70-99) Red Blood Count 3.58 x10^6/uL (4.30-5.70) Mean Corpuscular Volume 75 fL (79-100) Mean Corpuscular Hemoglobin 24 pg (25-35) Mean Corpuscular Hemoglobin Concent 32 g/dL (31-37) Red Cell Distribution Width 17.6 % (11.5-14.5) O2 Saturation 98 % (92-99) Arterial Blood pH 7.31 (7.35-7.45) Arterial Blood pCO2 at Patient Temp 43 mmHg (35-46) Arterial Blood pO2 at Patient Temp 167 mmHg (65-108) Arterial Blood HCO3 21 mmol/L (21-28) Arterial Blood Base Excess -5 mmol/L (-3-3) Oxyhemoglobin 97.6 % Methemoglobin 0.4 % (0.0-1.9) Carbon Monoxide, Quantitative 0.3 % (0.0-1.9) FiO2 80 Sodium Level 139 mmol/L (136-145) Potassium Level 4.2 mmol/L (3.5-5.1) Chloride Level 105 mmol/L (98-107) Carbon Dioxide Level 24 mmol/L (21-32) Anion Gap 10 (6-14) Blood Urea Nitrogen 12 mg/dL (8-26) Creatinine 0.9 mg/dL (0.7-1.3) Estimated GFR (Cockcroft-Gault) 83.2 Calcium Level 10.6 mg/dL (8.5-10.1) Magnesium Level 2.5 mg/dL (1.8-2.4) Test 08/16/18 17:32 08/16/18 17:35 08/16/18 18:33 08/16/18 19:50 Glucose (Fingerstick) 165 mg/dL (70-99) 178 mg/dL (70-99) O2 Saturation 96 % (92-99) Arterial Blood pH 7.38 (7.35-7.45) Arterial Blood pCO2 at Patient Temp 34 mmHg (35-46) Arterial Blood pO2 at Patient Temp 92 mmHg (65-108) Arterial Blood HCO3 19 mmol/L (21-28) Arterial Blood Base Excess -5 mmol/L (-3-3) White Blood Count 11.0 x10^3/uL (4.0-11.0) Red Blood Count 3.61 x10^6/uL (4.30-5.70) Hemoglobin 9.1 g/dL (13.0-17.5) Hematocrit 27.1 % (39.0-53.0) Mean Corpuscular Volume 75 fL (79-100) Mean Corpuscular Hemoglobin 25 pg (25-35) Mean Corpuscular Hemoglobin Concent 34 g/dL (31-37) Red Cell Distribution Width 18.0 % (11.5-14.5) Platelet Count 274 x10^3/uL (140-400) Sodium Level 137 mmol/L (136-145) Potassium Level 4.6 mmol/L (3.5-5.1) Chloride Level 104 mmol/L (98-107) Carbon Dioxide Level 22 mmol/L (21-32) Anion Gap 11 (6-14) Blood Urea Nitrogen 12 mg/dL (8-26) Creatinine 1.0 mg/dL (0.7-1.3) Estimated GFR (Cockcroft-Gault) 73.7 BUN/Creatinine Ratio 12 (6-20) Glucose Level 151 mg/dL (70-99) Calcium Level 9.7 mg/dL (8.5-10.1) Magnesium Level 2.1 mg/dL (1.8-2.4) Total Bilirubin 0.9 mg/dL (0.2-1.0) Aspartate Amino Transf (AST/SGOT) 56 U/L (15-37) Alanine Aminotransferase (ALT/SGPT) 19 U/L (16-63) Alkaline Phosphatase 45 U/L (46-116) Total Protein 5.8 g/dL (6.4-8.2) Albumin 3.4 g/dL (3.4-5.0) Albumin/Globulin Ratio 1.4 (1.0-1.7) Test 08/16/18 19:58 08/16/18 21:01 08/16/18 22:03 08/16/18 22:58 Glucose (Fingerstick) 164 mg/dL (70-99) 105 mg/dL (70-99) 107 mg/dL (70-99) 99 mg/dL (70-99) Test 08/17/18 00:01 08/17/18 00:57 08/17/18 02:02 08/17/18 03:45 Glucose (Fingerstick) 135 mg/dL (70-99) 131 mg/dL (70-99) 127 mg/dL (70-99) 166 mg/dL (70-99) White Blood Count 9.8 x10^3/uL (4.0-11.0) Red Blood Count 3.55 x10^6/uL (4.30-5.70) Hemoglobin 8.8 g/dL (13.0-17.5) Hematocrit 26.7 % (39.0-53.0) Mean Corpuscular Volume 75 fL (79-100) Mean Corpuscular Hemoglobin 25 pg (25-35) Mean Corpuscular Hemoglobin Concent 33 g/dL (31-37) Red Cell Distribution Width 18.2 % (11.5-14.5) Platelet Count 232 x10^3/uL (140-400) Sodium Level 134 mmol/L (136-145) Potassium Level 4.3 mmol/L (3.5-5.1) Chloride Level 100 mmol/L (98-107) Carbon Dioxide Level 22 mmol/L (21-32) Anion Gap 12 (6-14) Blood Urea Nitrogen 11 mg/dL (8-26) Creatinine 1.2 mg/dL (0.7-1.3) Estimated GFR (Cockcroft-Gault) 59.7 Glucose Level 176 mg/dL (70-99) Calcium Level 9.6 mg/dL (8.5-10.1) Magnesium Level 2.0 mg/dL (1.8-2.4) Test 08/17/18 05:04 08/17/18 06:37 08/17/18 08:28 08/17/18 10:47 Glucose (Fingerstick) 157 mg/dL (70-99) 175 mg/dL (70-99) 155 mg/dL (70-99) 178 mg/dL (70-99) Test 08/17/18 11:55 08/17/18 13:00 Glucose (Fingerstick) 171 mg/dL (70-99) 195 mg/dL (70-99) Objective Assessment POD#1, s/p CABG x 4 (HURTADO to LAD, radial to OM, SVG to diag, SVG to RPDA). Doing well. Normotensive, SR. On 2 lit NC. Ambulated already twice this morning. Minimal tube drainage. [place] UO. CXR OK. Hb 8.8 Creat 1.2. [place] and a-line have been removed. Plan Plan of Care D/c mediastinal tubes Lasix 20mg iv x1 Switch amiodarone drip to po for AFib prophylaxis Cap pacing wires Start home oral hypoglycemic regimen. Stop insulin drip. Sliding scale PRN B marlena, ASA and statin SUKHDEV ROCHA MD Aug 17, 2018 13:44
[2018-08-17] MEDS: metFORMIN 500 MG TABLET PO SCH ×2 (15:14→16:21)
[2018-08-17] MEDS: FUROSEMIDE 20 MG/2 ML VIAL. IVP SCH (15:15)
[2018-08-17] MEDS: AMIODARONE HCL 200 MG TABLET. PO SCH ×2 (15:15→21:11)
[2018-08-17] MEDS ORDERED: DEXTROSE 50% 25 GM / 50ML DISP.SYRIN. IV PRN (15:45)
[2018-08-17] MEDS: glipiZIDE 5 MG TABLET PO SCH (16:21)
[2018-08-17] MEDS ORDERED: NON FORMULARY ITEM (Metformin Hcl 1 TAB) PO SCH (21:00)
[2018-08-17] MEDS: TAMSULOSIN 0.4 MG CAP.ER.24H. PO SCH (21:10)
[2018-08-17] MEDS: FINASTERIDE 5 MG TABLET. PO SCH (21:10)
[2018-08-17] MEDS: ATORVASTATIN CALCIUM 20 MG TABLET PO SCH (21:10)
[2018-08-17] MEDS: INSULIN LISPRO 300 UNITS/3 ML INSULN.PEN. SQ SCH (21:15)
[2018-08-18] VITALS (17 sets, daily range): BP systolic 87–136; BP diastolic 55–74
[2018-08-18] MEDS: ZOLPIDEM 5 MG TABLET. PO PRN
[2018-08-18] MEDS ORDERED: diphenhydrAMINE HCL 25 MG CAPSULE PO ONE (02:15)
[2018-08-18 06:04] LABS: HEMATOCRIT 24.8 % (39.0-53.0); HEMOGLOBIN 8.2 g/dL (13.0-17.5); RED BLOOD COUNT 3.33 x10^6/uL (4.30-5.70); RED CELL DISTRIBUTION WIDTH 17.9 % (11.5-14.5); WHITE BLOOD COUNT 11.8 x10^3/uL (4.0-11.0)
[2018-08-18 06:19] LABS: CALCIUM 8.9 mg/dL (8.5-10.1); CREATININE 1.1 mg/dL (0.7-1.3); MAGNESIUM 1.8 mg/dL (1.8-2.4); POTASSIUM 4.3 mmol/L (3.5-5.1)
[2018-08-18] MEDS ORDERED: POTASSIUM CHLORIDE 20MEQ 50 ML IV ONE (08:00)
[2018-08-18] MEDS: INSULIN LISPRO 300 UNITS/3 ML INSULN.PEN. SQ SCH ×3 (08:00→17:43)
[2018-08-18] MEDS ORDERED: MAGNESIUM SULFATE 1GM 100 ML IV ONE (08:00)
[2018-08-18] MEDS: ASPIRIN ENTERIC COATED 325 MG TABLET.DR. PO SCH (08:41)
[2018-08-18] MEDS: METOPROLOL TART IMMED RELEASE 25 MG TABLET. PO SCH (08:41)
[2018-08-18] MEDS: metFORMIN 500 MG TABLET PO SCH ×2 (08:41→17:22)
[2018-08-18] MEDS: SENNOSIDES/DOCUSATE 8.6/50MG TABLET. PO SCH ×2 (08:41→21:21)
[2018-08-18] MEDS: AMIODARONE HCL 200 MG TABLET. PO SCH ×2 (08:42→21:21)
[2018-08-18] MEDS: FUROSEMIDE 20 MG/2 ML VIAL. IVP SCH (08:42)
[2018-08-18] MEDS: FAMOTIDINE 20 MG/2 ML VIAL IVP SCH ×2 (08:42→21:20)
[2018-08-18] MEDS: oxyCODONE/APAP 5/325 1 TAB TABLET PO PRN ×3 (08:43→17:22)
--- NOTE | 2018-08-18 09:32 | RAD ---
Portable chest, 08/18/2018: HISTORY: Postop CABG Comparison is made to yesterday's study. The mediastinal drains have been removed. A left pleural drain and a right jugular vascular sheath remain in place. The heart size is unchanged. The pulmonary vascularity is normal. There are mild streaky bibasilar opacities compatible with atelectasis. Soft tissue emphysema has developed, primarily in the left chest wall and in the lower neck bilaterally. There are small linear opacities projected over the apical regions bilaterally suggesting tiny apical pneumothoraces. No significant pleural fluid is evident. IMPRESSION: 1. New subcutaneous emphysema on the left extending into the neck. 2. Possible tiny bilateral apical pneumothoraces. 3. Mild bibasilar atelectasis. Electronically signed by: Sam San MD (08/18/2018 9:29 AM) [facility]
--- NOTE | 2018-08-18 14:09 | RAD ---
Portable chest, 08/18/2018, 12:32 PM: HISTORY: Chest tube leak, subcutaneous gas Comparison is made to a study from earlier the same day. The right jugular vascular sheath and left chest tube are unchanged in positions. The heart size is normal. There is mild ongoing bibasilar atelectasis, greatest medially on the left. There is a tiny left apical pneumothorax similar to that seen earlier in the day. A small right apical pneumothorax has increased slightly in size. No pleural fluid is evident. Bilateral subcutaneous emphysema has worsened slightly. IMPRESSION: 1. Worsening bilateral subcutaneous emphysema. 2. Small bilateral apical pneumothoraces. 3. Mild bibasilar atelectasis, left greater than right. Electronically signed by: Sam San MD (08/18/2018 2:06 PM) [facility]
--- NOTE | 2018-08-18 14:10 | PDOC ---
Progress Note Subjective Subjective Tired today, couldn't sleep last night. Normotensive, mild sinus tachycardia 100s. Developed small air leak last night after coughing. CXR shows both lungs fully expanded, minimal s/q emphysema. On 2 lit NC. Excellent UO after lasix. Hb 8.2 Creat 1.1. ROS ROS No nausea No vomiting No pain No rash Vital Sign Vital Signs Vital Signs Date Time Temp Pulse Resp B/P (MAP) Pulse Ox O2 Delivery O2 Flow Rate FiO2 08/18/18 12:45 22 97 Nasal Cannula 2.0 08/18/18 12:00 98.2 94 114/63 (80) 98.2 Physical Exam PHYSICAL EXAM GENERAL: NAD, Alert HEENT: PERRL, OC/OP NECK: Supple, no JVD, no LN LUNGS: Clear HEART: S1S2, no gallop, no murmur ABD: Soft, NT, no organomegaly, no rebound EXT: No edema, no cyanosis RESIDENTIAL SOLAR CONSULTANT: Alert, oriented x 3, no focal neurologic deficit SKIN: No rash IV: ok Labs Lab Laboratory Tests Test 08/17/18 17:49 08/18/18 05:40 08/18/18 08:31 08/18/18 11:59 Glucose (Fingerstick) 153 mg/dL (70-99) 142 mg/dL (70-99) 155 mg/dL (70-99) White Blood Count 11.8 x10^3/uL (4.0-11.0) Red Blood Count 3.33 x10^6/uL (4.30-5.70) Hemoglobin 8.2 g/dL (13.0-17.5) Hematocrit 24.8 % (39.0-53.0) Mean Corpuscular Volume 74 fL (79-100) Mean Corpuscular Hemoglobin 25 pg (25-35) Mean Corpuscular Hemoglobin Concent 33 g/dL (31-37) Red Cell Distribution Width 17.9 % (11.5-14.5) Platelet Count 224 x10^3/uL (140-400) Sodium Level 131 mmol/L (136-145) Potassium Level 4.3 mmol/L (3.5-5.1) Chloride Level 98 mmol/L (98-107) Carbon Dioxide Level 25 mmol/L (21-32) Anion Gap 8 (6-14) Blood Urea Nitrogen 12 mg/dL (8-26) Creatinine 1.1 mg/dL (0.7-1.3) Estimated GFR (Cockcroft-Gault) 66.0 Glucose Level 114 mg/dL (70-99) Calcium Level 8.9 mg/dL (8.5-10.1) Magnesium Level 1.8 mg/dL (1.8-2.4) Objective Assessment POD#2, s/p CABG x 4 (HURTADO to LAD, radial to OM, SVG to diag, SVG to RPDA). Tired today, couldn't sleep last night. Normotensive, mild sinus tachycardia 100s. Developed small air leak last night after coughing. CXR shows both lungs fully expanded, minimal s/q emphysema. On 2 lit NC. Excellent UO after lasix. Hb 8.2 Creat 1.1. Glucose <150 Patient known to have significant emphysema-likely ruptured a small bleb during last night's coughing spell. Air leak will eventually resolve. Plan Plan of Care Keep pleural tube to suction D/c taylor D/c michael CELAYA to transfer to stepdown Amiodarone po for AFib prophylaxis Increase metoprolol to 50mg BID D/c SUKHDEV Ragland MD Aug 18, 2018 14:10
[2018-08-18] MEDS ORDERED: METOPROLOL TART IMMED RELEASE 25 MG TABLET. PO ONE (14:30)
--- NOTE | 2018-08-18 16:05 | PDOC ---
CARDIOLOGY PROGRESS NOTE SUBJECTIVE: No acute events overnight. Feels fatigued but did walk 3 times. He is eating. No BM yet. Pain throughout. OBJECTIVE: Vital SIgns: vss I & O even fluid balance Objective: Gen: A/o x 3. NAD CVS: Bilateral rhonchi, Mild pericardial rub Soft abd No edema. L radial harvest and left GSV site c/d/i CURRENT MEDICATIONS: ASA 325mg daily Metoprolol 50mg bid Amiodarone 200mg bid Atorvastatin 20mg daily DIAGNOSTIC TESTING: CXR reviewed. ASSESSMENT: 1. CAD s/p 4V CABG 2. HTN - stable 3. COPD - stable. 4. Post-operative anemia - expected. PLAN: 1. Supportive care from cardiology standpoint. Will follow along peripherally with you. THANIA GALLARDO MD Aug 18, 2018 16:05
[2018-08-18] MEDS: glipiZIDE 5 MG TABLET PO SCH (17:22)
[2018-08-18] MEDS: ONDANSETRON PF 4 MG/2 ML VIAL. IV PRN (20:08)
[2018-08-18] MEDS: TAMSULOSIN 0.4 MG CAP.ER.24H. PO SCH (21:20)
[2018-08-18] MEDS: FINASTERIDE 5 MG TABLET. PO SCH (21:20)
[2018-08-18] MEDS: ATORVASTATIN CALCIUM 20 MG TABLET PO SCH (21:21)
[2018-08-18] MEDS: METOPROLOL TART IMMED RELEASE 50 MG TABLET. PO SCH (21:21)
[2018-08-19] VITALS (7 sets, daily range): BP systolic 107–134; BP diastolic 62–77
[2018-08-19 05:31] LABS: HEMATOCRIT 24.8 % (39.0-53.0); HEMOGLOBIN 8.2 g/dL (13.0-17.5); RED BLOOD COUNT 3.24 x10^6/uL (4.30-5.70); RED CELL DISTRIBUTION WIDTH 18.1 % (11.5-14.5); WHITE BLOOD COUNT 10.8 x10^3/uL (4.0-11.0)
[2018-08-19 05:59] LABS: CALCIUM 9.1 mg/dL (8.5-10.1); CREATININE 0.9 mg/dL (0.7-1.3); GFR 83.2; MAGNESIUM 1.9 mg/dL (1.8-2.4); POTASSIUM 4.5 mmol/L (3.5-5.1)
[2018-08-19] MEDS: INSULIN LISPRO 300 UNITS/3 ML INSULN.PEN. SQ SCH ×3 (08:00→17:00)
[2018-08-19] MEDS: oxyCODONE/APAP 5/325 1 TAB TABLET PO PRN (08:16)
[2018-08-19] MEDS: metFORMIN 500 MG TABLET PO SCH ×2 (08:17→18:06)
[2018-08-19] MEDS: AMIODARONE HCL 200 MG TABLET. PO SCH ×2 (08:17→20:02)
[2018-08-19] MEDS: METOPROLOL TART IMMED RELEASE 50 MG TABLET. PO SCH ×2 (08:17→20:03)
[2018-08-19] MEDS: ASPIRIN ENTERIC COATED 325 MG TABLET.DR. PO SCH (08:17)
[2018-08-19] MEDS: SENNOSIDES/DOCUSATE 8.6/50MG TABLET. PO SCH ×2 (08:17→20:01)
[2018-08-19] MEDS: FAMOTIDINE 20 MG/2 ML VIAL IVP SCH (08:18)
[2018-08-19] MEDS: ONDANSETRON PF 4 MG/2 ML VIAL. IV PRN (08:18)
--- NOTE | 2018-08-19 08:22 | RAD ---
Portable chest, 08/19/2018: HISTORY: Postop CABG Comparison is made to yesterday's study. The patient positioning is lordotic. The right jugular vascular sheath has been removed. The left chest tube remains in place. The heart size is normal. The previously seen small bilateral apical pneumothoraces are no longer evident. Mild streaky bibasilar atelectasis has improved. No significant pleural fluid is seen. The bilateral subcutaneous emphysema is stable. IMPRESSION: 1. Stable bilateral subcutaneous emphysema. 2. Previously seen tiny bilateral apical pneumothoraces have resolved. 3. Improving mild bibasilar atelectasis. Electronically signed by: Sam San MD (08/19/2018 8:19 AM) [facility]
--- NOTE | 2018-08-19 12:47 | PDOC ---
Progress Note Subjective Subjective Better today. Normotensive, SR. Air leak has resolved. CXR shows both lungs fully expanded, minimal s/q emphysema. On room air. ROS ROS No nausea No vomiting No pain No rash Vital Sign Vital Signs Vital Signs Date Time Temp Pulse Resp B/P (MAP) Pulse Ox O2 Delivery O2 Flow Rate FiO2 08/19/18 11:05 98.3 83 112/62 (79) 97 Nasal Cannula 2.0 98.3 08/18/18 18:19 17 Physical Exam PHYSICAL EXAM GENERAL: NAD, Alert HEENT: PERRL, OC/OP NECK: Supple, no JVD, no LN LUNGS: Clear HEART: S1S2, no gallop, no murmur ABD: Soft, NT, no organomegaly, no rebound EXT: No edema, no cyanosis SACK DEPARTMENT SUPERVISOR: Alert, oriented x 3, no focal neurologic deficit SKIN: No rash IV: ok Labs Lab Laboratory Tests Test 08/18/18 16:59 08/19/18 03:45 08/19/18 08:07 Glucose (Fingerstick) 161 mg/dL (70-99) 135 mg/dL (70-99) White Blood Count 10.8 x10^3/uL (4.0-11.0) Red Blood Count 3.24 x10^6/uL (4.30-5.70) Hemoglobin 8.2 g/dL (13.0-17.5) Hematocrit 24.8 % (39.0-53.0) Mean Corpuscular Volume 77 fL (79-100) Mean Corpuscular Hemoglobin 25 pg (25-35) Mean Corpuscular Hemoglobin Concent 33 g/dL (31-37) Red Cell Distribution Width 18.1 % (11.5-14.5) Platelet Count 226 x10^3/uL (140-400) Sodium Level 134 mmol/L (136-145) Potassium Level 4.5 mmol/L (3.5-5.1) Chloride Level 99 mmol/L (98-107) Carbon Dioxide Level 26 mmol/L (21-32) Anion Gap 9 (6-14) Blood Urea Nitrogen 13 mg/dL (8-26) Creatinine 0.9 mg/dL (0.7-1.3) Estimated GFR (Cockcroft-Gault) 83.2 Glucose Level 118 mg/dL (70-99) Calcium Level 9.1 mg/dL (8.5-10.1) Magnesium Level 1.9 mg/dL (1.8-2.4) Objective Assessment POD#3, s/p CABG x 4 (HURTADO to LAD, radial to OM, SVG to diag, SVG to RPDA). Better today. Normotensive, SR. Air leak has resolved. CXR shows both lungs fully expanded, minimal s/q emphysema. On room air. Plan Plan of Care D/c pleural tube D/c pacing wires Amiodarone po for AFib prophylaxis ASA, b marlena, statin Possible d/c home tomorrow SUKHDEV ROCHA MD Aug 19, 2018 12:47
--- NOTE | 2018-08-19 14:30 | PDOC ---
AIXA HERNANDEZ TRANSFER STATION OPERATOR 08/19/18 1430: CARDIO Progress Notes Date and Time Date of Service 08/19/2018 Time of Evaluation 1300 Subjective Subjective: No shortness of breath, No Palpitations, Other (chest surgical pain controlled) Vitals Vitals Vital Signs Date Time Temp Pulse Resp B/P (MAP) Pulse Ox O2 Delivery O2 Flow Rate FiO2 08/19/18 11:05 98.3 83 112/62 (79) 97 Nasal Cannula 2.0 98.3 08/18/18 18:19 17 Weight Weight [ ] Input and Output Intake and Output Intake and Output 08/19/18 07:00 Intake Total 350 ml Output Total 1765 ml Balance -1415 ml Intake Oral 350 ml Output Urine Total 1425 ml Emesis 100 ml Chest Tube Drainage Total 240 ml Laboratory Labs Laboratory Tests Test 08/18/18 16:59 08/19/18 03:45 08/19/18 08:07 08/19/18 13:06 Glucose (Fingerstick) 161 mg/dL (70-99) 135 mg/dL (70-99) 144 mg/dL (70-99) White Blood Count 10.8 x10^3/uL (4.0-11.0) Red Blood Count 3.24 x10^6/uL (4.30-5.70) Hemoglobin 8.2 g/dL (13.0-17.5) Hematocrit 24.8 % (39.0-53.0) Mean Corpuscular Volume 77 fL (79-100) Mean Corpuscular Hemoglobin 25 pg (25-35) Mean Corpuscular Hemoglobin Concent 33 g/dL (31-37) Red Cell Distribution Width 18.1 % (11.5-14.5) Platelet Count 226 x10^3/uL (140-400) Sodium Level 134 mmol/L (136-145) Potassium Level 4.5 mmol/L (3.5-5.1) Chloride Level 99 mmol/L (98-107) Carbon Dioxide Level 26 mmol/L (21-32) Anion Gap 9 (6-14) Blood Urea Nitrogen 13 mg/dL (8-26) Creatinine 0.9 mg/dL (0.7-1.3) Estimated GFR (Cockcroft-Gault) 83.2 Glucose Level 118 mg/dL (70-99) Calcium Level 9.1 mg/dL (8.5-10.1) Magnesium Level 1.9 mg/dL (1.8-2.4) Physical Exam HEENT: Neck Supple W Full Motion Chest: Symmetric LUNGS: Other (diminished; pushing IS, chest tube off) Heart: S1S2, RRR (SR no significant ectopies) Abdomen: Soft N/T Extremities: Other (1+ bilateral LE pitting edema) Neurology: alert, oriented, follow commands Assessment Assessment 1. CAD: s/p 4V CABG. POD#3, doing well 2. HTN - controlled 3. COPD - stable. 4. Post-operative anemia - expected. Hgb 8.2 5. DM2/HLP: on metformin and glipizide Recommendations 1. Push IS. Continue post CABG protocol 2. Secondary prevention measures. Follow up in 4-6 weeks. THANIA GALLARDO MD 08/19/18 1912: CARDIO Progress Notes Plan Plan Pt. seen and examined. Agree with above Pin Drafter Operator note. AIXA HERNANDEZ APRN Aug 19, 2018 14:30 THANIA GALLARDO MD Aug 19, 2018 19:12
--- NOTE | 2018-08-19 15:50 | RAD ---
Portable chest, 08/19/2018, 2:12 PM: HISTORY: Chest tube removal Comparison is made to a study of earlier the same day. The left chest tube has been removed. No definite pneumothorax is seen. No significant pleural fluid is evident. The heart size is normal. There is mild unchanged bibasilar atelectasis. Bilateral subcutaneous emphysema extending into the neck is stable. No new abnormality is detected. IMPRESSION: 1. No significant pneumothorax status post left chest tube removal. 2. Mild unchanged bibasilar atelectasis. 3. Stable bilateral subcutaneous emphysema. Electronically signed by: Sam San MD (08/19/2018 3:47 PM) [facility]
[2018-08-19] MEDS: glipiZIDE 5 MG TABLET PO SCH ×2 (17:00→18:06)
[2018-08-19] MEDS ORDERED: BISACODYL 10 MG SUPP.RECT. PR PRN (17:15)
[2018-08-19] MEDS ORDERED: POLYETHYLENE GLYCOL 3350 17 GM PACKET. PO PRN (17:15)
[2018-08-19] MEDS ORDERED: ACETAMINOPHEN 500 MG TABLET PO PRN (18:15)
[2018-08-19] MEDS: TAMSULOSIN 0.4 MG CAP.ER.24H. PO SCH (20:02)
[2018-08-19] MEDS: FINASTERIDE 5 MG TABLET. PO SCH (20:02)
[2018-08-19] MEDS: FAMOTIDINE 20 MG TABLET. PO SCH (20:02)
[2018-08-19] MEDS: ATORVASTATIN CALCIUM 20 MG TABLET PO SCH (20:02)
[2018-08-19] MEDS: ZOLPIDEM 5 MG TABLET. PO PRN (22:53)
[2018-08-20 03:45] VITALS: BP 126/66
[2018-08-20 07:35] VITALS: BP 142/70
[2018-08-20] MEDS: INSULIN LISPRO 300 UNITS/3 ML INSULN.PEN. SQ SCH ×3 (08:00→17:00)
[2018-08-20] MEDS: ASPIRIN ENTERIC COATED 325 MG TABLET.DR. PO SCH (08:31)
[2018-08-20] MEDS: SENNOSIDES/DOCUSATE 8.6/50MG TABLET. PO SCH ×2 (08:31→19:34)
[2018-08-20] MEDS: AMIODARONE HCL 200 MG TABLET. PO SCH ×2 (08:32→19:31)
[2018-08-20] MEDS: metFORMIN 500 MG TABLET PO SCH ×2 (08:32→17:31)
[2018-08-20] MEDS: FAMOTIDINE 20 MG TABLET. PO SCH ×2 (08:32→19:32)
[2018-08-20] MEDS: METOPROLOL TART IMMED RELEASE 50 MG TABLET. PO SCH ×2 (08:32→19:33)
[2018-08-20] MEDS: oxyCODONE/APAP 5/325 1 TAB TABLET PO PRN (09:15)
[2018-08-20 10:12] VITALS: BP 128/65
[2018-08-20 14:44] VITALS: BP 120/70
[2018-08-20] MEDS: glipiZIDE 5 MG TABLET PO SCH (17:00)
[2018-08-20 19:10] VITALS: BP 152/73
[2018-08-20] MEDS: TAMSULOSIN 0.4 MG CAP.ER.24H. PO SCH (19:31)
[2018-08-20] MEDS: ATORVASTATIN CALCIUM 20 MG TABLET PO SCH (19:32)
[2018-08-20] MEDS: FINASTERIDE 5 MG TABLET. PO SCH (19:34)
--- NOTE | 2018-08-20 21:19 | PDOC ---
Progress Note Subjective Subjective Feels tired. Normotensive, SR. CXR is good. On room air. ROS ROS No nausea No vomiting No pain No rash Vital Sign Vital Signs Vital Signs Date Time Temp Pulse Resp B/P (MAP) Pulse Ox O2 Delivery O2 Flow Rate FiO2 08/20/18 19:33 107 153/74 08/20/18 19:10 98.3 20 94 Room Air 98.3 08/20/18 12:44 2.0 Physical Exam PHYSICAL EXAM GENERAL: NAD, Alert HEENT: PERRL, OC/OP NECK: Supple, no JVD, no LN LUNGS: Clear HEART: S1S2, no gallop, no murmur ABD: Soft, NT, no organomegaly, no rebound EXT: No edema, no cyanosis SERICULTURIST: Alert, oriented x 3, no focal neurologic deficit SKIN: No rash IV: ok Labs Lab Laboratory Tests Test 08/20/18 07:59 08/20/18 11:44 08/20/18 16:46 08/20/18 20:37 Glucose (Fingerstick) 130 mg/dL (70-99) 130 mg/dL (70-99) 137 mg/dL (70-99) 145 mg/dL (70-99) Objective Assessment POD#4, s/p CABG x 4 (HURTADO to LAD, radial to OM, SVG to diag, SVG to RPDA). Feels tired. Normotensive, SR. CXR is good. On room air. Plan Plan of Care Continue PT, ambulation Amiodarone po for AFib prophylaxis ASA, b marlena, statin D/c home when patient feels ready SUKHDEV ROCHA MD Aug 20, 2018 21:19
[2018-08-20] MEDS: traMADol 50 MG TABLET PO PRN (22:57)
[2018-08-20 23:11] VITALS: BP 134/76
[2018-08-21 03:50] VITALS: BP 125/71
[2018-08-21 07:25] VITALS: BP 145/82
[2018-08-21] MEDS: INSULIN LISPRO 300 UNITS/3 ML INSULN.PEN. SQ SCH ×2 (08:00→12:00)
[2018-08-21] MEDS: ASPIRIN ENTERIC COATED 325 MG TABLET.DR. PO SCH (08:18)
[2018-08-21] MEDS: FAMOTIDINE 20 MG TABLET. PO SCH (08:18)
[2018-08-21] MEDS: AMIODARONE HCL 200 MG TABLET. PO SCH (08:18)
[2018-08-21] MEDS: SENNOSIDES/DOCUSATE 8.6/50MG TABLET. PO SCH (08:19)
[2018-08-21] MEDS: METOPROLOL TART IMMED RELEASE 50 MG TABLET. PO SCH (08:19)
[2018-08-21] MEDS: metFORMIN 500 MG TABLET PO SCH (08:19)
[2018-08-21 11:09] VITALS: BP 122/63
[2018-08-21] MEDS: traMADol 50 MG TABLET PO PRN (13:28)
[2018-08-21] MEDS ORDERED: SENN-22 PO (13:57)
[2018-08-21] MEDS ORDERED: METO50TA6 PO (13:57)
[2018-08-21] MEDS ORDERED: ASPI325T11 PO (13:57)
[2018-08-21] MEDS ORDERED: OXYC1TAB7 PO (13:57)
[2018-08-21 14:39] VITALS: BP 127/68
--- NOTE | 2018-08-21 18:00 | PDOC3 ---
Discharge Summary Visit Information Date of Admission: Aug 16, 2018 Date of Discharge: Aug 21, 2018 Admitting Diagnosis: CAD Brief Hospital Course Allergies Allergies Coded Allergies Type Severity Reaction Last Updated Verified No Known Drug Allergies 08/16/18 No Vital Signs Vital Signs Date Time Temp Pulse Resp B/P (MAP) Pulse Ox O2 Delivery O2 Flow Rate FiO2 08/21/18 14:39 98.1 80 18 127/68 (87) 95 Room Air 98.1 08/21/18 13:28 2.0 Lab Results Laboratory Tests Test 08/19/18 20:37 08/20/18 07:59 08/20/18 11:44 08/20/18 16:46 Glucose (Fingerstick) 178 mg/dL (70-99) 130 mg/dL (70-99) 130 mg/dL (70-99) 137 mg/dL (70-99) Test 08/20/18 20:37 08/21/18 07:48 08/21/18 12:24 Glucose (Fingerstick) 145 mg/dL (70-99) 125 mg/dL (70-99) 111 mg/dL (70-99) Laboratory Tests Test 08/20/18 20:37 08/21/18 07:48 08/21/18 12:24 Glucose (Fingerstick) 145 mg/dL (70-99) 125 mg/dL (70-99) 111 mg/dL (70-99) Brief Hospital Course The patient is a 72-year-old male with a history of type 2 diabetes, hyperlipidemia, hypertension who presents mainly with shortness of breath on minimal exertion with occasional angina. An MPI demonstrated severe ischemia in the LAD and RCA territories. He had a coronary angiogram last week which showed 100% occlusion of the proximal LAD, and 90% mid and distal RCA stenoses, 80% mid left circumflex lesion which is followed by 2 large marginal vessels, and a large diagonal vessel with a 70% proximal stenosis. LV gram shows an ejection fraction of 50-55%. He was admitted on 08/16/18 for an elective CABG x 4 (HURTADO to LAD, radial to OM, SVG to diag, SVG to RPDA). After surgery he was transferred to ICU. He was fast track extubated. He developed a small air leak from the left pleural drain on POD#2, which resolved on day 3, after which the tube was removed. He was transferred to the stepdown unit on POD#2. Otherwise he made an uneventful postoperative recovery and was discharged home on POD#5. Discharge Information Condition at Discharge: Stable Follow Up: Weeks (3) Disposition/Orders: D/C to Home Scheduled Aspirin (Aspirin Ec) 325 Mg Tablet.dr, 325 MG PO DAILYWBKFT for 120 Days, #120 Prescribed by: SUKHDEV ROCHA MD on 08/21/18 1357 Cetirizine Hcl (Cetirizine Hcl) 10 Mg Tablet, 1 TAB PO DAILY, #30 Ref 5 ( Reported) Entered as Reported by: JB THOAMS on 01/09/17 1436 Last Taken: Unknown Dose on 08/15/18 Last Action: HELD on 08/17/18 1336 by SUKHDEV ROCHA MD Finasteride (Finasteride) 5 Mg Tablet, 5 MG PO HS, (Reported) Entered as Reported by: CAR DUENAS on 08/15/18 1124 Last Taken: Unknown Dose on 08/15/18 Last Action: Continued on 08/16/18 1445 by SUKHDEV ROCHA MD Glipizide (Glipizide) 5 Mg Tablet, 1 TAB PO DAILYWSUP, #60 Ref 3 (Reported) Entered as Reported by: JB THOMAS on 01/09/17 1436 Last Taken: Unknown Dose on 08/15/18 Last Action: Continued on 08/17/18 1336 by SUKHDEV ROCHA MD Metformin Hcl (Metformin Hcl) 1,000 Mg Tablet, 1 TAB PO BID, #60 Ref 5 (Reported ) Entered as Reported by: JB THOMAS on 01/09/17 1436 Last Taken: Unknown Dose on 08/15/18 Last Action: Converted on 08/17/18 1336 by SUKHDEV ROCHA MD Metoprolol Tartrate (Metoprolol Tartrate) 50 Mg Tablet, 50 MG PO BID for 90 Days , #180 Prescribed by: SUKHDEV ROCHA MD on 08/21/18 1357 Multivitamin (Multivitamins) 1 Each Tablet, 1 TAB PO DAILY, #90 Ref 3 (Reported) Entered as Reported by: JB THOMAS on 01/09/17 1438 Last Taken: Unknown Dose on 08/15/18 Last Action: HELD on 08/17/181335 by SUKHDEV ROCHA MD Omeprazole (Omeprazole) 40 Mg Capsule.dr, 1 CAP PO DAILY07, #30 Ref 3 (Reported) Entered as Reported by: JB THOMAS on 01/09/171435 Last Taken: Unknown Dose on 08/16/18414 Last Action: HELD on 08/17/181335 by SUKHDEV ROCHA MD Rosuvastatin Calcium (Crestor) 5 Mg Tablet, 1 TAB PO HS, #30 Ref 5 (Reported) Entered as Reported by: JB THOMAS on 01/09/171435 Last Taken: Unknown Dose on 08/15/18 Last Action: Converted on 08/16/181444 by SUKHDEV ROCHA MD Tamsulosin Hcl (Tamsulosin Hcl) 0.4 Mg Cap.er.24h, 1 CAP PO HS, #30 Ref 5 ( Reported) Entered as Reported by: JB THOMAS on 01/09/171435 Last Taken: Unknown Dose on 08/15/18 Last Action: Continued on 08/16/181444 by SUKHDEV ROCHA MD Scheduled PRN Oxycodone Hcl/Acetaminophen (Oxycodone-Acetaminophen 5-325) 1 Each Tablet, 1 TAB PO PRN Q6-8HRS PRN for SEVERE PAIN, #30 Ref 0 Prescribed by: SUKHDEV ROCHA MD on 08/21/18 1357 Sennosides/Docusate Sodium (Senna-Time S Tablet) 1 Each Tablet, 1 TAB PO PRN Q12HR PRN for CONSTIPATION, #10 Prescribed by: SUKHDEV ROCHA MD on 08/21/18 1357 Discontinued Medications Amlodipine Besylate (Amlodipine Besylate) 5 Mg Tablet, 10 MG PO DAILY for 30 Days, Ref 5 Prescribed by: ROSAS GRIGGS on 01/12/17 0949 Last Taken: Unknown Dose on 08/16/18414 Last Action: HELD on 08/17/181335 by SUKHDEV ROCHA MD Aspirin (Aspirin) 81 Mg Tab.chew, 1 TAB PO DAILY, #30 Ref 3 (Reported) Entered as Reported by: JB THOMAS on 3/11/17 1436 Last Taken: Unknown Dose on 08/15/18 Last Action: HELD on 08/17/18 1336 by SUKHDEV ROCHA MD Metoprolol Tartrate (Metoprolol Tartrate) 25 Mg Tablet, 1 TAB PO BID, #180 Ref 1 (Reported) Entered as Reported by: SALVADOR ESCALANTE on 08/10/18 1622 Last Taken: Unknown Dose on 08/16/18 0415 Last Action: HELD on 08/16/18 1445 by MD JOSEFINA JONES ATHANASIOS MD Aug 21, 2018 18:00
== END 2018-08-21 16:28 | disposition home or self-care (01) | DRG 235 ==
LOC: OPSVCIP 05:34 → 1 WEST ICU 12:12 → 2 NORTH 08-19 08:00
PROVIDERS: ADMIT Thoracic Surgery (Cardiothoracic Vascular Surgery); ATTEND Thoracic Surgery (Cardiothoracic Vascular Surgery)
PROC: 02100AW Bypass Coronary Artery, One Artery from Aorta with Autologous Arterial Tissue, Open Approach (ICD-10-PCS; 2018-08-16)
PROC: 021109W Bypass Coronary Artery, Two Arteries from Aorta with Autologous Venous Tissue, Open Approach (ICD-10-PCS; 2018-08-16)
PROC: 06BQ4ZZ Excision of Left Saphenous Vein, Percutaneous Endoscopic Approach (ICD-10-PCS; 2018-08-16)
PROC: 02HP32Z Insertion of Monitoring Device into Pulmonary Trunk, Percutaneous Approach (ICD-10-PCS; 2018-08-16)
PROC: 03HY32Z Insertion of Monitoring Device into Upper Artery, Percutaneous Approach (ICD-10-PCS; 2018-08-16)
PROC: 03BC0ZZ Excision of Left Radial Artery, Open Approach (ICD-10-PCS; 2018-08-16)
PROC: 5A1221Z Performance of Cardiac Output, Continuous (ICD-10-PCS; 2018-08-16)
PROC: 5A1223Z Performance of Cardiac Pacing, Continuous (ICD-10-PCS; 2018-08-16)
PROC: 5A1935Z Respiratory Ventilation, Less than 24 Consecutive Hours (ICD-10-PCS; 2018-08-16)
PROC: 0BH17EZ Insertion of Endotracheal Airway into Trachea, Via Natural or Artificial Opening (ICD-10-PCS; 2018-08-16)
PROC: 02100Z9 Bypass Coronary Artery, One Artery from Left Internal Mammary, Open Approach (ICD-10-PCS; principal; 2018-08-16 07:30)
DX: I25.110 Atherosclerotic heart disease of native coronary artery with unstable angina pectoris (principal); I50.43 Acute on chronic combined systolic (congestive) and diastolic (congestive) heart failure; J93.82 Other air leak; E11.9 Type 2 diabetes mellitus without complications; J43.9 Emphysema, unspecified; D64.9 Anemia, unspecified; E78.5 Hyperlipidemia, unspecified; I10 Essential (primary) hypertension; I25.82 Chronic total occlusion of coronary artery; Z90.49 Acquired absence of other specified parts of digestive tract
CPT/HCPCS: 36415; 36600; 71045; 80048; 80053; 82803; 82805; 82962; 83735; 85027; 85347; 85384; 85610; 85730; 86850; 86900; 86901; 86920; 90471; 90756; 93005; 94002; C1781; J0282; J0690; J1644; J1815; J1940; J2001; J2150; J2250; J2270; J2405; J2440; J2704; J3370; J3475; J3480; J3490; J7030; J7040; J7120; P9045; P9046; Q0163; 97116; 97530; 97535; Q2035

== ENCOUNTER → 2018-09-16 | Outpatient (CLI) | payer MEDICARE, OTHER ==
[2018-08-21 14:39] VITALS: BP 127/68
[~2018-09-16] MED LIST changes: +ASPI325T11 PO; +HYDR-3164 PO; -HYDR-971 PO; +METO50TA6 PO; +OXYC1TAB7 PO; +SENN-22 PO
--- NOTE | 2018-09-16 17:58 | RAD ---
CHEST PA LATERAL History: S/P CABG. Personal history of recent pneumothorax. Comparison: August 18. Heart size: Stable [place]/mediastinum: Aorta mildly calcified and tortuous. Lungs: Small opacity in the right lower lung peripherally, probably similar as the prior study. Measures about 3 cm x 1.5 cm. No lobar consolidation. Pleura: Small left pleural effusion. Pneumothorax: None visualized Bones: Regional skeleton appears grossly intact. Miscellaneous: Postsurgical changes are identified. Previously seen subcutaneous emphysema has resolved. Impression: 1. Small left pleural effusion. 2. Ovoid nodular opacity of the right lateral lung base seen on the PA image, probably also present on the prior study, but less well-defined on that exam. Uncertain significance, consider CT chest for further evaluation. Electronically signed by: Jason White MD (09/16/2018 5:54 PM) [id number]
== END | disposition home or self-care (01) ==
LOC: RAD 10:27
PROVIDERS: ATTEND Thoracic Surgery (Cardiothoracic Vascular Surgery)
DX: Z09 Encounter for follow-up examination after completed treatment for conditions other than malignant neoplasm (principal); J90 Pleural effusion, not elsewhere classified; Z95.1 Presence of aortocoronary bypass graft
CPT/HCPCS: 71046

== ENCOUNTER 2018-09-27 12:31 | Emergency (ER) | payer MEDICARE, OTHER ==
[~2018-09-27] VITALS: Ht 180.3 cm; Wt 87.1 kg
[2018-09-27 13:50] LABS: BASO # 0.1 x10^3/uL (0.0-0.2); BASO % 1 % (0-3); EOS # 0.7 x10^3/uL (0.0-0.7); EOS % 13 % (0-3); HEMATOCRIT 25.4 % (39.0-53.0); HEMOGLOBIN 8.1 g/dL (13.0-17.5); LYMPH # 1.3 x10^3/uL (1.0-4.8); LYMPH % 24 % (24-48); MEAN CORPUSCULAR HEMOGLOBIN 23 pg (25-35); MEAN CORPUSCULAR HGB CONC 32 g/dL (31-37); MEAN CORPUSCULAR VOLUME 73 fL (79-100); MONO # 0.5 x10^3/uL (0.0-1.1); MONO % 9 % (0-9); NEUT % 54 % (31-73); PLATELET COUNT 430 x10^3/uL (140-400); RED CELL DISTRIBUTION WIDTH 17.6 % (11.5-14.5); WHITE BLOOD COUNT 5.6 x10^3/uL (4.0-11.0)
--- NOTE | 2018-09-27 14:07 | EKG ---
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
[2018-09-27 14:09] LABS: GFR 73.5
[2018-09-27 14:11] LABS: PROTHROMBIN TIME PATIENT 13.1 SEC (11.7-14.0)
--- NOTE | 2018-09-27 14:11 | RAD ---
EXAM: Chest, single view. HISTORY: Slurred speech. COMPARISON: 09/16/2018 FINDINGS: A frontal view of the chest is obtained. There is focal opacity overlying the right mid thorax, similar compared to the prior study. There is no consolidation, pleural effusion or pneumothorax. The heart is normal in size. There is evidence of prior CABG. There is emphysema. IMPRESSION: 1. No acute pulmonary finding. 2. Small focal opacity overlying the right mid thorax. There is no correlate for this finding on the recent CT dated 08/09/2018. Short-term radiographic or CT follow-up is recommended to confirm resolution or stability. Electronically signed by: Sweta Leon MD (09/27/2018 2:07 PM) [email or web address]
[2018-09-27 14:15] LABS: ALBUMIN 3.1 g/dL (3.4-5.0); TOTAL BILIRUBIN 0.3 mg/dL (0.2-1.0); TOTAL PROTEIN 6.2 g/dL (6.4-8.2)
[2018-09-27 14:38] LABS: BILIRUBIN,URINE NEGATIVE (NEG); COLOR,URINE YELLOW; NITRITE,URINE NEGATIVE (NEG); PROTEIN,URINE NEGATIVE (NEG-TRACE); UROBILINOGEN,URINE 0.2 mg/dL (0.2 mg/dL)
--- NOTE | 2018-09-27 14:40 | RAD ---
EXAM: Head CT without contrast. HISTORY: Slurred speech. TECHNIQUE: Computed tomographic images of the head were obtained without contrast. *One or more of the following individualized dose reduction techniques were utilized for this examination: 1. Automated exposure control. 2. Adjustment of the mA and/or kV according to patient size. 3. Use of iterative reconstruction technique. COMPARISON: None. FINDINGS: There is no acute or subacute extra-axial or intraparenchymal hemorrhage. There is no mass effect or midline shift. There is no hydrocephalus. There are areas of decreased attenuation within the cerebral white matter, nonspecific and likely related to chronic small vessel disease. There is cerebral volume loss. There are left maxillary sinus mucous retention cysts. There is paranasal sinus because of thickening. The mastoid air cells are clear. There is evidence of lens surgery. IMPRESSION: 1. No acute cranial finding. Note is made that MRI is more sensitive for acute infarction. 2. Decreased attenuation within the cerebral white matter, a nonspecific finding likely due to chronic small vessel disease. 3. Cerebral volume loss. Electronically signed by: Sweta Leon MD (09/27/2018 2:36 PM) [facility]
[2018-09-27 14:41] LABS: CLARITY,URINE CLEAR
[2018-09-27 14:43] LABS: BACTERIA,URINE 0 /HPF (0-FEW); RBC,URINE 0 /HPF (0-2); SQUAMOUS EPITHELIAL CELL,UR OCC /LPF; WBC,URINE 0 /HPF (0-4)
[2018-09-27 16:00] VITALS: BP 119/58
== END 2018-09-27 16:06 | disposition home or self-care (01) ==
LOC: ER 12:31
DX: R47.81 Slurred speech (principal); D64.9 Anemia, unspecified
CPT/HCPCS: 36415; 70450; 71045; 80053; 81001; 82550; 82962; 83605; 83735; 83880; 84484; 85025; 85610; 93005; 99284

== ENCOUNTER → 2018-12-27 | Outpatient (CLI) | payer MEDICARE, OTHER ==
[~2018-12-27] MED LIST changes: +AMLO5TAB10 PO; -AMLO5TAB7 PO
[2018-12-27 08:56] LABS: CALCIUM 9.3 mg/dL (8.5-10.1); CHOLESTEROL/HDL RATIO 3.3; GFR 73.5; POTASSIUM 4.6 mmol/L (3.5-5.1)
== END | disposition home or self-care (01) ==
LOC: LAB 08:02
PROVIDERS: ATTEND Internal Medicine Cardiovascular Disease
DX: I25.10 Atherosclerotic heart disease of native coronary artery without angina pectoris (principal)
CPT/HCPCS: 36415; 80048; 80061; 83721; 83880

== ENCOUNTER → 2019-09-12 | Outpatient (CLI) | payer MEDICARE, OTHER ==
[~2019-09-12] MED LIST changes: +OMEP40CA45 PO; -OMEP40CA5 PO
--- NOTE | 2019-09-13 16:32 | CARD ---
MR#: [id number] Date of Study: 09/12/2019 Ordering Physician: THANIA GALLARDO, Referring Physician: THANIA GALLARDO, Tech: Birdie Langford APPROVED REPORT EXAM: Two-dimensional and M-mode echocardiogram with Doppler and color Doppler. Other Information Quality : AverageHR: 74bpm INDICATION CAD 2D DIMENSIONS RVDd3.6 (2.9-3.5cm)Left Atrium(2D)3.6 (1.6-4.0cm) IVSd1.0 (0.7-1.1cm)Aortic Root(2D)2.4 (2.0-3.7cm) LVDd4.6 (3.9-5.9cm)LVOT Diameter2.2 (1.8-2.4cm) PWd1.0 (0.7-1.1cm)LVDs3.2 (2.5-4.0cm) FS (%) 30.2 %SV55.9 ml LVEF(%)57.5 (>50%) Aortic Valve AoV Peak Alessandro.145.0cm/sAoV VTI30.0cm AO Peak GR.8.4mmHgLVOT Peak Alessandro.102.2cm/s AO Mean GR.5mmHgAVA (VMAX)2.65cm2 Mitral Valve MV E Mmtwlbzz62.1cm/sMV E Peak Gr.5mmHg MV DECEL [id number] A Slybundt342.6cm/s MV E Mean Gr.2mmHgE/A Ratio0.8 Pulmonary Valve PV Peak Tdnyktno65.4cm/s Tricuspid Valve RAP [id number] Pulmonary Vein S1 Mupocbtq51.5cm/sD2 Bottibco04.6cm/s LEFT VENTRICLE The left ventricle is normal size. There is normal left ventricular wall thickness. The left ventricu lar systolic function is normal. The Ejection Fraction is 55-60%. There is normal LV segmental wall m otion. Transmitral Doppler flow pattern is Grade I-abnormal relaxation pattern. RIGHT VENTRICLE The right ventricle is normal size. The right ventricular systolic function is normal. ATRIA The left atrium size is normal. The right atrium size is normal. The interatrial septum is intact wit h no evidence for an atrial septal defect or patent foramen ovale as noted on 2-D or Doppler imaging. AORTIC VALVE The aortic valve is thickened but opens well. Doppler and Color Flow revealed no significant aortic r egurgitation. There is no significant aortic valvular stenosis. MITRAL VALVE The mitral valve is thickened but opens well. Mitral annular calcification is mild. There is no aparna l valve stenosis. Doppler and Color-flow revealed trace mitral regurgitation. TRICUSPID VALVE The tricuspid valve is normal in structure and function. Doppler and Color Flow revealed trace tricus pid regurgitation. PULMONIC VALVE The pulmonic valve is not well visualized. Doppler and Color Flow revealed no pulmonic valvular regur gitation. GREAT VESSELS na The ascending aorta is normal in size. The IVC is normal in size and collapses >50% with inspirati on. PERICARDIAL EFFUSION There is no pleural effusion. There is no evidence of significant pericardial effusion. Critical Notification Critical Value: No <Conclusion> The left ventricular systolic function is normal. The Ejection Fraction is 55-60%. There is normal LV segmental wall motion. Transmitral Doppler flow pattern is Grade I-abnormal relaxation pattern. Trace mitral regurgitation. Trace tricuspid regurgitation. There is no evidence of significant pericardial effusion. Signed by : Max Elkins, Electronically Approved : 09/12/2019 10:12:04
== END ==
LOC: ECHO 08:43
PROVIDERS: ATTEND Internal Medicine Cardiovascular Disease
DX: I05.9 Rheumatic mitral valve disease, unspecified (principal); I25.10 Atherosclerotic heart disease of native coronary artery without angina pectoris; I11.9 Hypertensive heart disease without heart failure; Z87.891 Personal history of nicotine dependence
CPT/HCPCS: 93306

== ENCOUNTER → 2020-07-24 | Outpatient (CLI) | payer MEDICARE, OTHER ==
[~2020-07-24] MED LIST changes: +MULT-445 PO; -MULT1TAB52 PO
--- NOTE | 2020-07-24 11:26 | RAD ---
MR#: [id number] Date of Study: 07/24/2020 Ordering Physician: THANIA GALLARDO, Referring Physician: THANIA GALLARDO, Tech: Janet Boyle, RDMS, RVT, RTR APPROVED REPORT Patient Location: OUT-PATIENT Laterality:Bilateral Indications Bruit Doppler Spectral Velocity Analysis Right Left pCCA 61/11 cm/spCCA 79/14 cm/s mCCA 71/12 cm/smCCA 66/8 cm/s dCCA 61/13 cm/sdCCA 66/15 cm/s Bulb 30/8 cm/sBulb 54/13 cm/s ECA 124/12 cm/sECA 69/9 cm/s pICA 40/10 cm/spICA 103/23 cm/s Robert 66/19 cm/smICA 95/25 cm/s dICA dICA 109/28 cm/s Vert. 23/5 cm/sVert. 35/10 cm/s ICA/CCA 0.92ICA/CCA 1.65 Findings Grayscale images demonstrate mild to moderate bilateral plaque at the level of the carotid bulbs. Th ere is mild to moderate intimal hyperplasia. Based on velocity criteria overall 0 to less than 50% s tenosis. No significant high-grade obstruction is evident. ICA to CCA ratios are within normal limi ts. Vertebral velocities are antegrade bilaterally. Critical Notification Critical Value: No <Conclusion> 1. No significant carotid disease noted bilaterally Signed by : Thania Gallardo, Electronically Approved : 07/24/2020 11:26:01
== END | disposition home or self-care (01) ==
LOC: US 10:05
PROVIDERS: ATTEND Internal Medicine Cardiovascular Disease
DX: I65.23 Occlusion and stenosis of bilateral carotid arteries (principal); I77.3 Arterial fibromuscular dysplasia
CPT/HCPCS: 93880

== ENCOUNTER → 2021-02-13 | Outpatient (CLI) | payer MEDICARE ==
[~2021-02-13] MED LIST changes: -ACYC800T PO; +ACYC800T88 PO; +AMLO-186 PO; -AMLO5TAB10 PO; -CLIN150C14 PO; +CLIN150C15 PO; -LISI-334 PO; +LISI20TA18 PO
--- NOTE | 2021-02-13 18:05 | [facility]IC ---
EXAM: Chest, 2 views. HISTORY: Cough. COMPARISON: 09/27/2018 FINDINGS: 2 views of the chest are obtained. There is no infiltrate, pleural effusion or pneumothorax . There is hyperinflation due to inspiratory effort or emphysema. The heart is normal in size. There is evidence of prior CABG. There are healed rib fractures. IMPRESSION: No acute pulmonary finding. Electronically signed by: Sweta Leon MD (02/13/2021 6:03 PM) [facility]
== END ==
LOC: KCIC 13:08
PROVIDERS: ATTEND Family Medicine
DX: R05 Cough (principal)
CPT/HCPCS: 71046

== ENCOUNTER → 2021-07-22 | Outpatient (CLI) | payer MEDICARE ==
[~2021-07-22] MED LIST changes: -CLIN150C15 PO; +CLIN150C16 PO; -OMEP40CA45 PO; +OMEP40CA7 PO
--- NOTE | 2021-07-22 17:45 | CARD ---
MR#: [id number] Date of Study: 07/22/2021 Ordering Physician: THANIA GALLARDO, Referring Physician: THANIA GALLARDO, Tech: APPROVED REPORT EXAM: Two-dimensional and M-mode echocardiogram with Doppler and color Doppler. INDICATION Dyspnea LEFT VENTRICLE The left ventricle is normal size. There is borderline concentric left ventricular hypertrophy. The l eft ventricular systolic function is normal. The ejection fraction is 55-60%. There is normal LV segm ental wall motion. Transmitral Doppler flow pattern is Grade I-abnormal relaxation pattern. No left v entricle thrombus noted on this study. There is no ventricular septal defect visualized. There is no left ventricular aneurysm. There is no mass noted in the left ventricle. RIGHT VENTRICLE The right ventricle is normal size. There is normal right ventricular wall thickness. The right ventr icular systolic function is normal. ATRIA The left atrium is mildly dilated. The right atrium size is normal. The interatrial septum is intact with no evidence for an atrial septal defect or patent foramen ovale as noted on 2-D or Doppler imagi ng. AORTIC VALVE The aortic valve is mildly sclerotic. Doppler and Color Flow revealed no significant aortic regurgita tion. There is no significant aortic valvular stenosis. There is no aortic valvular vegetation. MITRAL VALVE The mitral valve is normal in structure and function. There is no evidence of mitral valve prolapse. There is no mitral valve stenosis. Doppler and Color-flow revealed trace to mild mitral regurgitation . TRICUSPID VALVE The tricuspid valve is normal in structure and function. Doppler and Color Flow revealed mild tricusp id regurgitation. The PA pressure was estimated at 40 mmHg. There is no tricuspid valve prolapse or v egetation. There is no tricuspid valve stenosis. PULMONIC VALVE The pulmonary valve is normal in structure and function. Doppler and Color Flow revealed no pulmonic valvular regurgitation. There is no pulmonic valvular stenosis. GREAT VESSELS The aortic root is normal in size. The ascending aorta is normal in size. The pulmonary artery is nor mal. The IVC is normal in size and collapses >50% with inspiration. PERICARDIAL EFFUSION There is no pleural effusion. There is no evidence of significant pericardial effusion. Critical Notification Critical Value: No <Conclusion> The left ventricular systolic function is normal. The ejection fraction is 55-60%. There is normal LV segmental wall motion. Transmitral Doppler flow pattern is Grade I-abnormal relaxation pattern. Trace to mild mitral regurgitation. Mild tricuspid regurgitation. The PA pressure was estimated at 40 mmHg. There is no evidence of significant pericardial effusion. Signed by : Max Elkins, Electronically Approved : 07/22/2021 17:45:31
== END ==
LOC: ECHO 09:28
PROVIDERS: ATTEND Internal Medicine Cardiovascular Disease
DX: I08.3 Combined rheumatic disorders of mitral, aortic and tricuspid valves (principal); I25.10 Atherosclerotic heart disease of native coronary artery without angina pectoris
CPT/HCPCS: 93306

== ENCOUNTER → 2022-02-20 | Outpatient (CLI) | payer MEDICARE ==
--- NOTE | 2022-02-20 14:00 | RAD ---
MR#: [id number] Date of Study: 02/20/2022 Ordering Physician: THANIA GALLARDO, Referring Physician: VICKIE CARIAS Tech: RT Ramon Baez) (N) APPROVED REPORT Test Type: Exercise Stress Nurse/Tech: Yaa Blackman RN Test Indications: CAD Cardiac History: Hypertension, Diabetes,CABG x4 (5 yrs. ago),COPD Medications: See Electronic Medical Record Medical History: See Electronic Medical Record Resting ECG: SR with BBB,PVC Resting Heart Rate: 95 bpm Resting Blood Pressure: 139/69mmHg Pretest Chest Pain: No chest pain Nurse/Tech Notes S1,S2 and lungs diminished in the bases. Consent: The procedure was explained to the patient in lay terms. Informed consent was witnessed. Mike eout was entered into [employer]. History and Stress Test performed by RT Rosangela (Tashi) (N) Stress Symptoms Dyspnea,Fatigue POST EXERCISE Reason for Termination: Reached target heart rate, Fatigue Target HR: Yes Max HR: 150 bpm 97% of Maximum Predicted HR: 145 bpm Exercise duration: 2:58 min:sec, 1 Stage Exercise capacity: 4.6METs Max Blood Pressure: 154/79mmHg Blood Pressure response to exercise: Normal blood pressure response during stress. Heart Rate response to exercise: WNL Chest Pain: No. Arrhythmia: Yes. PVC ST Change: No. INTERPRETATION Stress EKG Conclusion: The resting EKG shows a sinus rhythm with an inferior Q-wave and diffuse nonsp ecific ST changes. The stress EKG showed no significant changes from baseline. Abnormal resting EKG but no EKG evidence of stress-induced ischemia. Imaging Protocol IMAGE PROTOCOL: Rest Tc-99m/stress Tc-99m 1 day Rest: Stress: Viability: Radiopharm.Tc99m [id number] Sestamibi Dose10.5mCi 31.7mCi Duration 13.5min. 13.5min. Img Date 02/20/2022 02/20/2022 Inj-Img Rlvz12nsr. 60min. Rest Admin Site:IV - Left AntecubitalAdministrator:Adria David, RT (R)(N) Stress Admin Site: IV - Left AntecubitalAdministrator: Sweta Negron RT (R)(N) STRESS DATA End Diast. Vol.77.0mlLVEDV index BSA35.0ml End Syst. Vol.22.0mlLVESV index BSA10.0ml Myocardial Jfea330.0gEject. Czcmgkoz62.0% Stress Scores Regional WT1.00Summed WT17.00 Regional WM0.00Summed WM4.00 LV Perfusion The stress scans show an inferior wall defect. The rest scans show an inferior wall defect. 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 Nuclear imaging shows no other abnormalities and no evidence of reversible ischemia. Wall Motion Left ventricular ejection fraction is 71%. LV Perf. Quant 17 Seg. SSS2.00 17 Seg. SRS5.00 17 Seg. SDS0.00 Stress Defect Extent (% LAD)0.00Rest Defect Extent (% LAD)0.00Rev. Defect Extent (% LAD)0.00 Stress Defect Extent (% LCX) 0.00Rest Defect Extent (% LCX)0.00Rev. Defect Extent (% LCX)0.00 Stress Defect Extent (% RCA)11.10Rest Defect Extent (% RCA)43.30Rev. Defect Extent (% RCA)0.00 Stress Defect Extent (% CHICO)2.60Rest Defect Extent (% CHICO)10.20Rev. Defect Extent (% CHICO)0.00 Conclusion 1. Fair exercise tolerance with the patient walking for 2 minutes and 58 seconds on a Aneudy protocol. 2. No reported chest pain with exertion. 3. Abnormal baseline EKG but no EKG evidence of stress-induced ischemia. 4. 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 5. Nuclear imaging shows no other abnormalities and no evidence of reversible ischemia. 6. LV systolic function shows an ejection fraction of 71%. 7. Moderate to moderately low risk exercise nuclear stress test. Signed by : Gabo Lerma MD Electronically Approved : 02/20/2022 13:59:49
== END ==
LOC: NM 07:34
PROVIDERS: ATTEND Internal Medicine Cardiovascular Disease
DX: I21.9 Acute myocardial infarction, unspecified (principal); I25.10 Atherosclerotic heart disease of native coronary artery without angina pectoris
CPT/HCPCS: 78452; 93017; A9500